=== PATIENT | female | born 1990 | race Caucasian/White ===

== ENCOUNTER 2024-06-23 15:23 | Outpatient (CLI) | payer BC, SELFPAY ==
--- OUTSIDE RECORDS SUMMARY | 2024-06-23 15:25 | XMS_ITS | Data Portability ---
Author Organization DONA - [facility] OFFICE Address [address] [place] [address] DONA GORDON [id number] Assessment No assessment recorded. Plan of Treatment Reminders Order Date Submit Date Provider Last Modified By Organization Details Last Modified Time Details Appointments None recorded. Lab TSH, serum, reflex free T4 2019 SHERI Not available 0 16:12:11 hemoglobin A1c, QN, blood 2019 SHERI Not available 0 09:29:23 prolactin, serum 2019 020 SHERI Not available 0 13:17:37 lipids, total, serum 2019 SHERI Not available 0 16:12:11 pap, LB + reflex to HR HPV if ASC-U - Nabothian cysts, friable cervix 2020 021 SHERI Not available 15:24:47 Referral None recorded. Procedures None recorded. Surgeries None recorded. Imaging US, transvagina l 2020 021 [email or web address] Not available 1 13:17:46 Medication Orders fluoxetine 20 mg capsule 2021 022 SHERI Not available 2 12:15:57 lorazepam 0.5 mg tablet 2021 022 SHERI Not available 2 12:15:05 Patient TargetsNo targets recorded. Patient Instructions Encounter Date Encounter Id Patient Instructions Last Modified By Organization Details Last Modified Time 12/03/2021 [id number] mental health counseling* [email or web address] Not available 12/04/2021 11:12:15 Reason for Referral None Reported. Results Created Date Observation Date Name Description Value Unit Range Abnormal Flag Note LastModifiedBy Organization Detail LastModifiedTime 07/22/20 20 07/22/2020 hemog lobin A1c, QN, blood A1C 5.2 Not Available [place] [address] [place], [address], 07/23/2020 09:04:53 07/22/20 20 07/22/2020 TSH, serum , refle x free T4 HDL 41 Not Available [address] [place], [address], 07/22/2020 16:12:11 07/22/20 20 07/22/2020 TSH, serum , refle x free T4 LDL 81 Not Available [address] [place], [address], 07/22/2020 16:12:11 07/22/20 20 07/22/2020 TSH, serum , refle x free T4 total cholesterol 152 Not Available Dist [facility] [address] [place], [address], 07/22/2020 16:12:11 07/22/20 20 07/22/2020 TSH, serum , refle x free T4 triglyceride s 152 Not Available [address] [place], [address], 07/22/2020 16:12:11 07/22/20 20 07/22/2020 TSH, serum , refle x free T4 TSH 2.45 Not Available [address] [place], [address], 07/22/2020 16:12:11 07/22/20 20 07/22/2020 lipid s, total , serum HDL 41 Not Available [address] [place], [address], 07/22/2020 15:54:38 07/22/20 20 07/22/2020 lipid s, total , serum LDL 81 Not Available [address] [place], [address], 07/22/2020 15:54:38 07/22/20 20 07/22/2020 lipid s, total , serum total cholesterol 152 Not Available Dist [facility] [address] [facility] [place], [address], 07/22/2020 15:54:38 07/22/20 20 07/22/2020 lipid s, total , serum triglyceride s 152 Not Available [address] [facility] [place], [address], 07/22/2020 15:54:38 07/22/20 20 07/22/2020 lipid s, total , serum TSH 2.45 Not Available [facility] [address] [facility] [place], [address], 07/22/2020 15:54:38 09/11/19 21 09/11/2020 pap, LB + refle x to HR HPV if ASC-U gynecologic cytology report (Pap) nil nil normal Not Available [facility] [address], [place], [address], 09/20/2020 15:06:53 09/11/19 21 09/11/2020 pap, LB + refle x to HR HPV if ASC-U HPV high risck negati ve negati ve Not Available Not Available 09/27/2020 18:10:27 Result Notes None recorded. Problems Name Problem SNOMED Code Status Onset Date Resolution Date Notes Provider Name and Address Organization Details Recorded Time Anxiety 27239501 Active 2020 Melinda Zamarripa NP [address] [place], [address], [facility] [employer] 10:54:05 Depressive disorder 55740038 Active 2020 Melinda Zamarripa NP [address] [place], [address], [facility] [employer] 10:54:10 Nosophobia 852756176 Active 2020 Melinda Zamarripa NP [address] [place], [address], [facility] 1 10:55:28 Obsessive-co mpulsive disorder 799087539 Active 2020 Melinda Zamarripa NP [address] [place], [address], [facility] 1 10:55:36 Problem Notes None recorded. Procedures Surgical History Date Name Laterality Status Provider Name and Address Organization Details Recorded Time 7 Date of Last Pap Smear completed Melinda Zamarripa NP [address] [place], [address], [facility] 07/17/2020 16:16:07 0 [place] [address] [place] [address], [phone], [facility] 07/17/2020 16:15:50 Imaging Results None recorded. Procedure Notes None recorded. Medical Equipment None Reported. Allergies Allergen ID Allergen Name Allergen Category Reaction Reaction Severity Criticality Documentation Date Start Date Code Code System Note Provider Name and Address Organization Details Recorded Time 283 Reglan medicatio n Not available Not available Not available 07/17/2020 9230 RxNorm Melinda Zamarripa NP [address] [place], [address], [facility] 0 16:12:38 Medications Name Sig Start Date Stop Date Status Note LastModified by Organization Details LastModified Time lorazepam 0.5 mg tablet TAKE 1 TO 2 TABLETS BY MOUTH EVERY 6 HOURS NEEDED FOR ANXIETY active Not Available Not Available No t Available ergocalcife rol (vitamin D2) 1,250 mcg (50,000 unit) capsule TAKE ONE CAPSULE BY MOUTH EVERY WEDNESDAY AND WEDNESDAY. active Not Available Not Available No t Available fluoxetine 20 mg capsule TAKE 1 CAPSULE EVERY DAY BY ORAL ROUTE. active Not Available Not Available No t Available neomycin-po lymyxin-hyd rocort 3.5 mg-10,000 unit/mL-1 % ear drops,susp INSTILL 4 DROPS INTO AFFECTED EAR(S) INTO RIGHT EAR 4 TIMES DAILY FOR 7 DAYS 09/11 completed Not Available Not Available Not Available Vitals Date Recorded Body height Body mass index (BMI) Body weight Provider Name and Address Organization Details Last Updated DateTime 07/17/2020 154.94 cm 39.7 kg/m2 32846.4 g Melinda Zamarripa NP [address] [place], [address] [employer] [facility] 07/17/2020 16:11:36 Date Recorded Body height Provider Name an d Address Organization Details Last Updated DateTime 07/31/2020 154.94 cm Melinda Zamarripa NP [address] [place], [address] [employer] 07/31/2020 11:38:15 Date Recorded Body height Body mass index (BMI) Body weight Respiratory rate Systolic blood pressure Diastolic blood pressure Provider Name and Address Organization Details Last Updated DateTime 1 158.75 cm 36.5 kg/m2 46877.2 5 g 83 /min 130 mm[Hg] 84 mm[Hg] Melinda Zamarripa NP [address] [place], [address], [facility] [employer] 1 10:54:34 Date Recorded Body weight Body mass index (BMI) Body height Heart rate Systolic blood pressure Diastolic blood pressure Provider Name and Address Organization Details Last Updated DateTime 2 51996.7 7 g 33.7 kg/m2 158.75 cm 77 /min 111 mm[Hg] 75 mm[Hg] Melinda Zamarripa NP [address] [place], [address] [place] [address] [employer] 2 10:58:07 Social History Question Answer Notes LastModified by Organizat ion Details LastModified Time Tobacco Smoking Status Never Smoker Melinda Zamarripa NP [address] [place], [address], [facility] [employer] 07/17/2020 16:13:18 What Is Your Level Of Alcohol Consumption? None Information not available 07/17/2020 What Is Your Level Of Caffeine Consumption? Moderate Daily Pop Information not available 07/17/2020 Are You Currently Employed? No Information not available 07/17/2020 What Type Of Diet Are You Following? REGULAR Information not available 07/17/2020 Which Illicit Or Recreational Drugs Have You Used? None Information not available 07/17/2020 What Is Your Occupation? Doesn't Work Information not available 07/17/2020 Hard Of Hearing Or Deaf In One Or Both Ears? No Information not available 07/17/2020 Legally Blind In One Or Both Eyes? No Information not available 07/17/2020 Live Alone Or With Others? With Others Lives With Her Mom Information not available 07/17/2020 How Many Children Do You Have? 2 10, 3 Information not available 07/17/2020 Are You Sexually Active? Yes Information not available 07/17/2020 General Stress Level Medium Information not available 07/17/2020 Sex: Unknown Functional Status Question Answer Note LastModified by Organization D etails LastModified Time Are you able to care for yourself? Yes Information n ot available 07/17/2020 What is your exercise level? None Information not available 07/17/2020 Mental Status None recorded. Family History Relationship Description Onset Age of this Age Resolved Age Notes LastModified by Organization Details LastModified Time Father No current problems or disability Not available 07/17 16:13:10 Mother No current problems or disability Not available 07/17 16:13:10 Medical History No medical history recorded. Gynecological History Statement/Question Response Date of LMP 03/07/2020 Sexually Active? Y STIs/STDs N Menses Monthly N Date of Last Pap Smear 06/23/2017 Current Control Method None LMP Approximate Obstetrics History GPAL:G 2 P 0 0 0 2 Type Value Living 2 Total 2 Past Encounters Encounter ID Performer Location Encounter Start Date Encounter Closed Date Diagnosis/Indication Diagnosis SNOMED-CT Code Diagnosis ICD10 Code [id number] Melinda Zamarripa NP [facility] [address] [place] [phone] 07/17/2020 15:42:42 07/17/2020 17:44:59 Irregular periods 23482930 N92.6 [id number] Melinda Zamarripa NP [facility] [address] [facility] [place] [address] 07/31/2020 11:20:07 07/31/2020 12:07:28 Irregular periods 07025806 N92.6 Screening for malignant neoplasm of cervix 927031139 Z12.4 [id number] Melinda Zamarripa NP [facility] [address] [place] [address] DONA RAMOS [phone] 09/11/2020 09:52:46 09/11/2020 11:12:11 Irregular periods 87247409 N92.6 Screening for malignant neoplasm of cervix 053688089 Z12.4 [id number] [facility] [address] [place] [address] [place] [address] 12/03/2021 10:42:19 12/03/2021 12:53:07 Anxiety 61408166 F41.9 Health Concerns Section Related Observation LastModified by Organization Detai ls LastModified Time None Recorded Concern Status LastModified by Organization Details LastModified Time None Recorded Advance Directives Directive None Recorded Payers Encounter Date Sequence Insurance Name Policy Number Policy Olguin Covered Member ID Olguin Member ID Guarantor Name 07/17/2020 SLIDING FEE SCHEDULE - DISCOUNT Stefania Pearl 07/31/2020 SLIDING FEE SCHEDULE - DISCOUNT Stefania Pearl 09/11/2020 SLIDING FEE SCHEDULE - DISCOUNT Stefania Pearl 12/03/2021 SLIDING FEE SCHEDULE - DISCOUNT Stefania Dae Notes Date Note Type Note Provider Name and Address Organization Details Recorded Time 07/17/2020 text/html HPI Notes: 30 y. o F evaluated via phone for the following concern: No period x 4 months UPTs have been negative Started having cramping/pressure in her abdomen intermittently around the time of her scheduled period, but no bleeding Clitoris has been hurting Last sexually active 4 months ago Partners are men No vaginal symptoms Weight gain ~50 lbs (used to be 160) in the last 1-2 years Melinda Zamarripa NP [address] [facility] [place], [address], [facility] 07/17/2020 16:36:25 07/31/2020 text/html HPI Notes: 30 y. o F evaluated via doxy in follow up after evaluation 2 weeks ago for amenorrhea Due to BMI and patient-reported weight gain, PCOS was thought to be the most likely cause of amenorrhea Labs performed: TSH, A1c, lipids were unremarkable. PRL slightly elevated but not concerning for prolactinoma Just got her period starting 1 week ago - felt like a normal period to her, but stopped for a day in the middle Last sexually active 4 months ago, still in a relationship with the father of her child No vaginal symptoms or concern for STIs Weight gain ~50 lbs (used to be 160) in the last 1-2 years Reports that it's really hard for her to stop eating Eats whenever - eats leftovers, bread. Has cravings. I eat more than I should Exercise - right now she's in quarantine - she's been walking a lot in her room, knows of exercises Feeling well physically Melinda Zamarripa, ROQUE [address] [place], [address], [facility] 07/31/2020 11:59:42 09/11/2020 text/html HPI Notes: 30 y. o. established patient In-person visit PMH: irregular periods, obesity, anxiety, depression, OCD, nosophobia In-person visit for follow up for irregular periods and pap smear 1. Irregular periods: long history of irregular periods. Reports long stretches of monthly periods followed by periods of oligomenorrhea and amenorrhea. Recent TSH, A1c, lipids, prolactin unconcerning (though prolactin was very slightly elevated, not high enough to be concerning for prolactinoma). Had a period in july as well as august. LMP 08/28/20. These periods were irregular in that she bled on days 1-3, stopped for days 4-5, and restarted days 6-7. Flow is moderate, whereas it used to be heavy. Irregularities thought to be related to PCOS by provider given patient's weight and physical findings of acanthosis nigricans in axillae and mildly at base of neck, as well as mild hirsutism. Previously she had been advised to attempt weight loss by dietary changes and increased exercise. Patient reports that she has not made any changes to her diet or exercise. Patient not using contraception - not interested in any type of control due to history of side effects with those she has tried. Currently sexually active with one male partner. Associated ROS: Patient reports history of pelvic pain occasionally, lasting for a full day. Has had a pelvic U/S in the past that was normal (records show 2018). Patient also concerned about inability to orgasm with penetrative sex with partner. Has never been able to, but partner told her this was abnormal. Denies pelvic pain currently, vaginal discharge, itching, odor, irritation, breast tenderness, nausea, vomiting, fatigue, headache, further weight changes. 2. Pap smear - last pap 09/15/17 NILM. No other records available. Patient denies history of abnormal pap smear. Melinda Zamarripa, FINANCIAL AID ADMINISTRATOR [address] [place], [address], [facility] [employer] [facility] 09/11/2020 12:12:33 12/03/2021 text/html HPI Notes: 31 y. o. established patient with history of anxiety, nosophobia, OCD, and depression presents for follow up after urgent care appointment 11/05/21 for left neck and pectoral pain with radiation to left wrist Pain was felt to be musculoskeletal in nature - likely a pinched nerve or muscle that has radiated to her right hand. Differential diagnosis may consider carpel tunnel or tendonitis according to urgent care provider. It was recommended that she take Ibuprofen 600mg TID x 1 week and schedule a follow up with PCP. Presents today with concerns about increasing anxiety and panic attacks associated with restlessness, SOB, desperation. She reports that she perseverates often on concerns about her own medical conditions and the health of her children. She is not able to sleep due to worry. She stopped working because she was afraid that something would happen to her children while she is at work. When her daughter was 1.5 years old she got a virus and the patient had to take her to the ER. Her daughter had tachycardia at that time, but has subsequently had many normal visits with the dry cans back tender. Patient reports that she worries constantly about her daughter's heart. Previously took medications that were helpful, but cannot remember the name. Open to therapy but did not especially find it helpful. Denies manic symptoms or hallucinations. Patient lives with her mother and her children (12 and 4). She feels safe at home. She is sexually active with one male partner and uses condoms. She has irregular periods. Last period 2 months ago, multiple negative UPTs since. Denies smoking, alcohol abuse, or drug use. Melinda Zamarripa, FINANCIAL AID ADMINISTRATOR [address] [place], [address], [facility] 12/03/2021 14:59:27 OBGyn Episode No OBEpisode recorded.
--- OUTSIDE RECORDS SUMMARY | 2024-06-23 15:25 | XMS_ITS | Clinical Summary ---
Author Organization [facility] Address [place], [place] [address] Care Team Providers Care Steel Erector Name Role Phone Amena Jamison Primary Care Provider Allergies Active Allergy Reactions Criticality Noted Date Comments Fluoxetine *Unknown 12/16/2021 Serotonin syndrome (vs extreme anxiety reaction) Metoclopramide Hcl Dystonia High 12/23/2016 dystonic reaction. Medications Medication Sig Dispensed Refills Start Date End Date Status propranoloL (INDERAL) 10 mg tabletIndicatio ns:Severe anxiety with panic Take 0.5 Tablets (5 mg) by mouth two times daily. May take 1/2 tablet extra if needed once daily for breakthrough symptoms. 90 Tablet 3 06/04/2023 Active famotidine (PEPCID) 20 mg tabletIndicatio ns:Upper abdominal pain Take 1 Tablet (20 mg) by mouth two times daily. 30 Tablet 06/06/2024 Active vit no.124/iron/fol ic ( VITAMIN ORAL) Take 1 Tablet by mouth once daily. Active no115/iron/foli c acid ( 19 ORAL) Take by mouth. 4 Discontinued(P harmacist change per medication history (E-cancel not sent)) aluminum-magnes ium hydroxide-simet hicone (MAALOX PLUS) 200-200-20 mg/5 mL suspensionIndic ations:Upper abdominal pain Take 15 mL by mouth 4 times daily if needed for GI Upset. Shake Well. 355 mL 06/06/2024 4 Discontinued(P harmacist change per medication history (E-cancel not sent)) Active Problems Problem Noted Date Diagnosed Date [facility] [place], Supervision of high-risk 06/20/20 24 Overview (06/21/2024): Stefania Pearl : 1990 REFERRING PROVIDER: Hiral Ruggiero MD, [place], Primary provider approves scheduling of recommended ultrasounds/testing: Yes [facility] [place] ULTRASOUND/TESTING PATIENT Support person name: Albert ULTRASOUND TYPE: level II REASON FOR VISIT: Large anterior placental beckford in an anterior placenta, pt with history of prior C/S NEXT VISIT ALERTS: Final BIRDIE by Early Ultrasound LMP Date: Patient's last menstrual period was 01/21/2024 (exact date). BIRDIE: 10/27/24 Early US: Date: 03/17/24 GA: 7w2d BIRDIE: 11/01/24 PrePregnancy Weight: 196lb Height: 5'2 BMI: 35 PLANS & FUTURE APPOINTMENTS: ULTRASOUND/GROWTH PLAN: - Through: - Growth: Next TESTING PLAN: - Testing: Through DELIVERY PLAN: - Scheduled delivery: - Preferred delivery location: PRIMARY DIAGNOSIS: 34 y.o. Estimated Date of Delivery: 11/01/24 Large anterior placental beckford in an anterior placenta MATERNAL BMI > 35 Cholecystitis in , recommendation for cholecystectomy, patient has deferred at this time Anxiety/PTSD/OCD Hx palpitations 2017 Term 2009 Term P LTCS-arrest of dilitation, [place], [place] PREVIOUS ULTRASOUNDS: 06/27/24 21w6d 06/19/24 20w5d EFW 417 grams, percentile: 79- placenta lies anteriorly without evidence of placenta previa. Anechoic collection of fluid within the placenta measuring 8.4 x 1.6 x 5.3 cm. ECHO: SPECIALISTS/CONSULTS: Include: Specialty MD Clinic Name Phone# [place] and ADDED TO PATIENT CARE TEAM Bernardino Ocasio MD, Surgery - General, [place] 06/12/24 Sharita Walls MD, Cardiology, [place] 06/04/23 Maria E Venegas, [facility], psych, [place] 03/10/22 GENETICS: NIPS: low risk CARE COORDINATION: PERTINENT LABS: Labs reviewed? Yes Normal? Yes Blood type: O Rh Positive Antibody screen: Negative 04/05/24 Baseline Pre E WNL PERTINENT MEDS: Propranolol (anxiety) PROCEDURES: 06/10/24 MR Abd The nondilated appendix is identified arising from the cecum in the right lower quadrant and measures up to 4 mm at the tip (03/15). There is mild T2 signal adjacent to the appendix, which could represent inflammation, but incomplete fat suppression is also possible (06/15). Overall, no definite evidence of acute appendicitis, but early appendicitis could not be entirely excluded either. 06/09/24 US Abd 1. Cholelithiasis with borderline thickened wall and reported positive sonographic Cary`s sign, suspicious for cholecystitis in the correct clinical setting. 2. Hepatic steatosis. IF FGR <10% or EFW <2000 grams: Add FGRPCOM PLAN OF CARE: Original and updated POC JAYY (generalized anxiety disorder) 06/10/2024 Right sided abdominal pain 06/10/2024 Second trimester 06/10/2024 Pap smear for cervical cancer screening 03/29/20 24 Overview (03/29/2024): 02/2024 NIL/HPV negative. Plan: Pap/HPV due 02/2029. 03/07/2024 Overview (03/17/2024): Primary OB patient of Dr. Ruggiero Preferred name: Stefania Language/cultural preferences: Surinamese OB HISTORY / PERTINENT MEDICAL HISTORY: Estimated Date of Delivery: 11/01/24- Not c/w LMP Dating by U/S @ 7w2d OB History Para Term AB Living 3 2 1 0 0 2 SAB IAB Ectopic Multiple Live Births # Outcome Date GA Lbr Rodrigue/2nd Weight Sex Type Anes PTL Lv 3 Current 2 Term 08/03/17 39w6d 3.18 kg (7 lb) F Vag 1 Para 09/28/09 40w4d F CS-LTranv Prior hx Preeclampsia NO HTN NO GDM NO Dystocia NO C/S YES in 2009, had in 2016 If hx C/S needs TOLAC consult Issues this : Social History : FOB/Spouse: Albert Children: 2 at home, 7y and 16y 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 Pre-eclampsia risk on aspirin? {yes/no/NA:93666} LABS: GBS: {gbs:17144} 28wk labs: {28wOBlab:88389} OB labs: ABORH Date Value Ref Range Status 03/07/2024 O Rh Positive Final ANTIBODY SCREEN Date Value Ref Range Status 03/07/2024 Negative Negative Final TREPONEMA PALLIDUM Date Value Ref Range Status 03/07/2024 Non-Reactive Non-Reactive Final RUBELLA IGG ANTIBODY Date Value Ref Range Status 03/07/2024 4.23 >=1.00 Index Final INTERPRETATION Date Value Ref Range Status 03/07/2024 Positive Final Comment: Presence of detectable IgG antibodies. A positive result generally indicates exposure to the virus or previous vaccination, but is not an indication of active infection or stage of disease. HBSAG Date Value Ref Range Status 03/07/2024 Nonreactive Nonreactive Final HEPATITIS C ANTIBODY Date Value Ref Range Status 03/07/2024 Non-Reactive Non-Reactive Final Comment: Please note, per www.CDC.gov: If a patient is known to be at high risk of HCV infection, or is symptomatic, and the physician's suspicion of HCV infection is high, HCV RNA testing is often employed and is of diagnostic value, even after an initial negative anti-HCV test result. HIV-1/HIV-2 SCREEN Date Value Ref Range Status 03/07/2024 Non-Reactive Non-Reactive Final Comment: HIV-1 p24 and HIV-1/HIV-2 Ab Not Detected. HEMOGLOBIN Date Value Ref Range Status 03/09/2024 12.4 12.0 - 16.0 g/dL Final PLATELET COUNT Date Value Ref Range Status 03/07/2024 350 140 - 440 thou/cu mm Final CHLAMYDIA PROBE Date Value Ref Range Status 03/07/2024 Negative Final N GONORRHOEAE PROBE Date Value Ref Range Status 03/07/2024 Negative Final PLAN: Waterbirth: {YES/NO:} plan: {YES/NO:} Support people at delivery: Circumcision: {yes/no/NA:17357} Feeding plan: {BREAST/BOTTLE:69} Contraception: Obsessive-compulsive disorder with good or fair insight 02/16/2022 Posttraumatic stress disorder with delayed expre ssion 02/16/2022 Serotonin syndrome 12/15/2021 Vulvar lesion 04/01/2017 Overview (04/01/2017): Probably vulvar palpillae at introitus, less likely condyloma Estimated Date of Delivery Comme nts Yes 11/01/2024 Based on Ultraso und Resolved Problems Problem Noted Date Diagnosed Date Resolved Date Encounter for supervision of other normal , first trimester 12/02/2016 03/17/2024 Obsessive-compulsive disorders 05/26/2013 02/16/2022 Phobia 03/07/2013 02/16/2022 Overview (03/07/2013): nosophobia, fear of getting ill or having an illness Depression with anxiety 03/03/201301/22 Supervision of normal first 05/22/2009 11/12/2009 Encounters Date Type Department Care Team Description 06/23/2024 Nurse Triage [facility] [address] [place] [address] Hiral Ruggiero MD Abdominal Pain 06/20/2024 Transcribe Orders [facility] [address] [place] [address] Hiral Ruggiero MD 06/20/2024 Orders Only [facility] [address] [facility] [place] [address] Hiral Ruggiero MD <No scans attached> 06/19/2024 1:50 PM CDT OB Encounter [facility] [address] [facility] [facility] [place] [address] Hiral Ruggiero MD Care (20 weeks 5 days) 06/19/2024 1:00 PM CDT Ancillary Procedure [facility] [address] [facility] [address] Arrived 06/19/2024 Travel 06/12/2024 10:00 AM CDT Office Visit [facility] [address] [place] [address] Bernardino Ocasio MD Consult (Gallbladder) 06/12/2024 Telephone [facility] [address] [facility] [address] Hiral Ruggiero MD Medication Management ( vitamins) 06/12/2024 Travel 06/11/2024 Telephone [facility] [address] [place] [address] Cathy Alaniz PharmD Abnormal Lab Results 06/10/2024 12:55 AM CDT - 06/11/2024 10:33 AM CDT Emergency [facility] [address] [place] [address] Efraín Odom PA Dodd, Kendra Danielle, MD [facility], [facility] Elizabeth DO Barnard, Kayla Julia, PA Royston, Princess Dalal MD RLQ abdominal pain (Primary Dx) Discharge Disposition: Home Self Care 06/10/2024 Travel 06/09/2024 3:09 PM CDT - 06/09/2024 11:52 PM CDT Emergency [facility] [address] [place] [address] Jose D Mccabe MD Bailey, Joshua Anthony, MD Abdominal pain during in second trimester (Primary Dx); Acute bilateral low back pain without sciatica; Vaginal discharge during in second trimester; Spotting affecting in second trimester; Leukocytosis, unspecified type Discharge Disposition: Short Term/PPS Hosp 06/09/2024 2:50 PM CDT Office Visit [facility] [address] [place] [address] Problem (Feeling abdominal discomfort- describes like period cramps. Lower back discomfort. Starting 2-3 days ago. Today noted green vaginal discharge with some vaginal spotting today x 1.) 06/09/2024 Travel 06/06/2024 10:09 AM CDT - 06/06/2024 12:52 PM CDT Emergency [facility] [address] [place] [address] Paul Nieves MD Upper abdominal pain (Primary Dx); , unspecified gestational age; Calculus of gallbladder without cholecystitis without obstruction Discharge Disposition: Home Self Care 06/06/2024 Travel 06/06/2024 Nurse Triage [facility] [address] [place] [address] Hiral Ruggiero MD Abdominal Pain 05/27/2024 Orders Only [facility] [address] [place] [address] Hiral Ruggiero MD 1 scan: (1-Ord) GENE NICK, DNA SCREEN SEND OUT, 05/16/2024 05/16/2024 1:25 PM CDT OB Encounter [facility] [address] [place] [address] Hiral Ruggiero MD Care (15w 6 days); Medication Management (questions on what pre- to take. ) 05/16/2024 Travel 04/07/2024 Telephone [facility] [address] [place] [address] Stefania Galdamez, PharmD Results (Vaginal Swab - Positive for Mar) 04/05/2024 9:37 PM CDT - 04/05/2024 11:59 PM CDT Emergency [facility] [address] [place] [address] Alicia Kerr DO Abdominal pain during in first trimester (Primary Dx) Discharge Disposition: Home Self Care 04/05/2024 Travel from Last 3 Months Immunizations Name Administration Dates Next Due Hepatitis B, Unspecified 10/01/2006,06/22/2006,0 05/05/2006 Human Papilloma Virus Vaccine 01/25/2015 Influenza A (H1N1), Inactivated 06/26/2009 MMR 05/05/2006 Tdap 06/18/2017,05/05/2006 Family History Medical History Relation Name Comments Good Health Brother Good Health Father Diabetes Maternal Grandfather type 2 Diabetes Maternal Grandmother Type 2 Good Health Mother Cancer-breast Paternal Grandfather Good Health Sister Relation Name Status Comments Brother Alive Father Alive Maternal Grandfather Maternal Grandmother Mother Alive Paternal Grandfather Sister Alive Social History Tobacco Use Types Packs/Day Years Used Date Smoking Tobacco: Never Smokeless Tobacco: Never Tobacco Cessation:Counseling Given: Yes Alcohol Use Standard Drinks/Week Comments No 0 (1 standard drink = 0.6 oz pur e alcohol) PHQ-2 Answer Date Recorded PHQ-2 TOTAL SCORE 0 03/07/2024 Social Connections Answer Date Recorded Do you often feel lonely or isolated from those around you? 0 02/28/2024 Financial Resource Strain Answer Date R ecorded Difficulty of Paying Living Expenses 3 02/28/2024 Difficulty of Paying Living Expenses Not on file 02/28/2024 Food Insecurity Answer Date Recorded Do you worry your food will run out before you are able to buy more? 1 02/28/2024 Transportation Needs Answer Date Record ed Does lack of transportation keep you from medica l appointments? 1 02/28/2024 Does lack of transportation keep you from work, meetings or getting things that you need? 1 02/28/2024 Housing Stability Answer Date Recorded What is your housing situation today? 1 02/28/2024 Estimated Date of Delivery Comme nts Yes 11/01/2024 Based on Ultraso und Sex and Gender Information Value Date Recorded Sex Assigned at Not on file Gender Identity Not on file Sexual Orientation Not on file Obstetrics History Para Term AB IAB SAB Ectopic Multiple Livin g Live Births 3 2 2 0 0 2 2 Date Outcome GA Total Labor Labor/2nd/3rd Weight Sex Type Anes PTL Jaelyn A1 A5 Name Clin 09/28 Term 40w 4d F CS-LTra nv Living Complications:Oligohydramnio s,Chorioamnionitis 08/03 Term 39w 6d 3.18 kg (7 lb) F Induced Living 9 9 Current Summary Episode Dates Number of Fetuses Estimated Date of Delivery 03/07/2024 - Present (06/23/2024) 11/01/2024 (set by Cat Fay RN on 03/17/2024 based on Ultrasound on 03/17/2024) Dating Summary Based On BIRDIE GA Diff Last Menstrual Period on 01/21/2024 (Exact Date) 10/27/2024 +5d Comment:period is currently late Ultrasound on 03/17/2024 11/01/2024 Working GA:7w2d Alternate BIRDIE Entry 10/27/2024 +5d Vitals Pregravid Weight Height TWG (As of 06/23/2024) Pregrav id BMI 1.575 m (5' 2) Date GA Fund Present FHR Mvmt BP Weight Edema Alb Glu Ket Dil/ Eff/Sta 4 6w1d Inpatient data not displayed here. See encounter summary. 4 10w0d Inpatient data not displayed here. See encounter summary. 4 18w6d Inpatient data not displayed here. See encounter summary. 4 19w2d Inpatient data not displayed here. See encounter summary. 4 19w4d Inpatient data not displayed here. See encounter summary. Notes Progress Notes - OB Encounte r - 06/19/2024 - GA:20w5d 06/19/2024 - 20w5d - Hiral Ruggiero MD S: Patient here today for routine visit. Doing well. History 1) Anxiety. Previously on atenolol, found that this was helpful. She was transitioned to propranolol early in . 2) H/o with subsequent 3) Cholecystitis in , recommendation for cholecystectomy, patient has deferred at this time, considering at viable GA. Patient recently hospitalized on 06/10 with abdominal pain with US evidence of acute cholecystitis. She had a subsequent visit with Dr Ocasio in general surgery to discuss risks/benefits of cholecystectomy in . Patient remains very hesitant about intervention. She worries about risks it poses to fetus and if desires to get done she wants to wait until viability (~24 weeks). She states her abdominal pain that brought her into the hospital has subsided with pepcid and does not feel she has symptomatic cholecystitis at this time. She also endorses right lower abdominal wall pain with ambulation. Improves with rest. This is different from pain she had in upper quadrants. No nausea. Good movement. No vaginal bleeding/discharge, loss of fluid, contractions, dysuria or other urinary symptoms. No headache, vision changes, facial or extremity edema. She states she gets frequent yeast infection, yellowish greenish discharge. She has been using cream. O: See flowsheet. A/P: 34 y.o. at 20w5d, doing well. 1. Encounter for supervision of low-risk in second trimester 2. Severe anxiety with panic 3. Cholecystolithiasis affecting in second trimester - Long discussion today regarding recent diagnosis of cholecystitis. She has changed diet and states she no longer has RUQ symptoms. Cary's sign negative today in clinic. She is very uncertain and anxious about surgery as well as delaying intervention. She continues to consider options and will reconsider options once at viability or if symptoms return. She will reach out if she has made a decision. She is aware that once at viability she would likely need to be in a place with a NICU. - States anxiety is stable. - Anatomy US normal, she does have a large placental beckford. - Reviewed labor precautions. - Return in 4wks for OB FU. Hiral Ruggiero MD .................... 06/19/2024 1:47 PM Progress Notes - Hospital En counter - 06/11/2024 - GA:19w4d 06/11/2024 - w - Rosendo Mcgarry MD GENERAL SURGERY PROGRESS NOTE SUBJECTIVE: Resolved RLQ pain. Normalized WBC. Tolerating clear liquids. Complains of occasional RUQ pain. OBJECTIVE: BP 94/50 (Cuff Size: Adult Regular) Pulse 86 Temp 97.9 ??F (36.6 ??C) Resp 18 Ht 1.575 m (5' 2) Wt 87.6 kg (193 lb 1.6 oz) LMP 01/21/2024 (Exact Date) Comment: period is currently late SpO2 96% BMI 35.32 kg/m?? Temp (24hrs), Av.9 ??F (36.6 ??C), Min:97.8 ??F (36.6 ??C), Max:98.1 ??F (36.7 ??C) Patient Vitals for the past 72 hrs: Weight 06/10/24 0051 87.6 kg (193 lb 1.6 oz) No intake or output data in the 24 hours ending 06/11/24 1011 PHYSICAL EXAM: RESPIRATORY: Normal CARDIOVASCULAR: Normal ABDOMEN: soft, non distended. No rebound tendrness or guarding. Recent Labs 06/09/24 1538 06/06/24 1031 SODIUM 137 137 POTASSIUM 3.8 3.7 CHLORIDE 103 102 [id number] 24 22 BUN 6 6 CREATININE 0.54 0.46 L CALCIUM 9.2 8.9 Recent Labs 06/11/24 0448 06/10/24 0420 06/09/24 1538 06/06/24 1031 ALKPHOSPH -- -- 75 57 WBC 9.9 11.9 H 12.0 H 9.7 HGB 11.1 L 11.0 L 12.4 11.8 L PLT 296 299 314 296 ASSESSMENT & PLAN: 34 y/o female w/ anxiety, OCD, depressive disorder, and PTSD and currently 19 wks presented with recurrent Rt groin pain: Due to atypical history/physical and resolved leukocytosis and pain without surgery, this is less likely an appendicitis episode. I recommend advancing to regular diet and discharging home today. No further antibiotics indicated. Patient has some complaint of RUQ pain with known gallstones. We had a discussion about risks and benefits of cholecystectomy for biliary colic during . If she is interested in pursuing in surgery, she may follow up with general surgery team as an outpatient. General surgery team will sign off from this patient's care. Vlad Mcgarry MD .................... 06/11/2024 10:11 AM 06/11/2024 - 19w4d - Xochitl Vidales MD OB PROGRESS NOTE SUBJECTIVE: Patient doing well. Pain much improved. No vaginal bleeding or leaking fluid. Maybe feeling flutters but no gross movements yet. Very happy that her WBC is improved and that she does not need surgery. Happy to go home today and has a general surgery appointment for her gallstones tomorrow in [facility] and will ask about the appendectomy if needed prior 3rd trimester. Discussed surgery in and timing. All questions and concerns addressed. heart today is reassuring 130-140s via doptones. OBJECTIVE: BP 94/50 (Cuff Size: Adult Regular) Pulse 86 Temp 97.9 ??F (36.6 ??C) Resp 18 Ht 1.575 m (5' 2) Wt 87.6 kg (193 lb 1.6 oz) LMP 01/21/2024 (Exact Date) Comment: period is currently late SpO2 96% BMI 35.32 kg/m?? Temp (24hrs), Av.9 ??F (36.6 ??C), Min:97.8 ??F (36.6 ??C), Max:98.1 ??F (36.7 ??C) Patient Vitals for the past 72 hrs: Weight 06/10/24 0051 87.6 kg (193 lb 1.6 oz) No intake or output data in the 24 hours ending 06/11/24 0946 PHYSICAL EXAM: Exam: Gen: no acute distress Lung: no breathing difficulties Heart: normal heart rate Abdomen: soft, none-distended, none tender to palpation, gravid slightly below umbilicus. HEART RATE 138 : deferred Extremities: trace edema, no pain to palpation Neuro: grossly intact Psychiatry: appropriate, no anxiety or depression Recent Labs 06/09/24 1538 06/06/24 1031 SODIUM 137 137 POTASSIUM 3.8 3.7 CHLORIDE 103 102 [id number] 24 22 BUN 6 6 CREATININE 0.54 0.46 L CALCIUM 9.2 8.9 Recent Labs 06/11/24 0448 06/10/24 0420 06/09/24 1538 06/06/24 1031 ALKPHOSPH -- -- 75 57 WBC 9.9 11.9 H 12.0 H 9.7 HGB 11.1 L 11.0 L 12.4 11.8 L PLT 296 299 314 296 Principal Problem: Right sided abdominal pain Active Problems: JAYY (generalized anxiety disorder) Second trimester ASSESSMENT & PLAN: Patient is 34 years old now at 19w4d with previable and admitted for acute right sided abdominal pain, work up noted inflammation around appendix. She was admitted for observation and pain control. Had mild leukocytosis on admission but this morning resolved. Discussed possible appendicitis but now given improved White blood cells and pain, no further intervention including surgery. Ok to go home from OB standpoint and heart rate reassuring this morning. Resume routine OB care at [facility]. Continue to follow up with General surgery tomorrow for the gallstones and ?appendicitis. All questions and concerns addressed. Appreciate management per primary team and general surgery. Xochitl Vidales MD .................... 06/11/2024 9:45 AM Total time 20 minutes >50% in counseling and coordination of care. Will continue to follow as long as she is inpatient but ok for discharge to home this morning. 06/11/2024 - John Downey RN Discharge Note Data: Patient has been discharged home with a family/friend. Family/friend's name at 1030AM via ambulatory accompanied by Family. Action: Written discharge/follow-up instructions were provided to patient and Spouse. Prescriptions NA. Belongings and medications from home sent with patient and Spouse. Home equipment: none Patient is being discharged with the following new lines and drains: None. Is patient being discharged with a wound, dressing, or incision site? No. DISCHARGE CONTACT INFORMATION Phone number to reach the patient within the next 72 hours after discharge?: (not recorded) May staff leave a detailed message at this number? : (not recorded) Response: Patient and Spouse verbalized understanding of discharge instructions, reason for discharge, and necessary follow-up appointments. 06/11/2024 - Yodit Blair RN Nursing Shift Care Plan Summary Note Pain/Comfort: Denies pain ASSESSMENT FINDINGS/INTERVENTIONS/EVALUATION for Active Problems during this hospitalization: Active Problems: Right sided abdominal pain Assessment/Interventions: A&O x4, VSS on RA. Pt denies nausea, vomiting, and dizziness. Tolerating clear liquids. Voiding WNL, no BM. Pt is 19 weeks . BP 96/54 (Cuff Size: Adult Regular) Pulse 77 Temp 98.1 ??F (36.7 ??C) Resp 16 Ht 1.575 m (5' 2) Wt 87.6 kg (193 lb 1.6 oz) LMP 01/21/2024 (Exact Date) Comment: period is currently late SpO2 94% BMI 35.32 kg/m?? Progress: stable Additional Nursing Focus Areas (include assessment, interventions and evaluation details as appropriate): Activity (Last 8 Hours) Eve-CytoVale Row Name 06/11/24 0400 JH-AMP Mobility Highest Level of Mobility Performed Walked 10 steps or more Level of Assistance Independent Equipment None Independent and Nutrition: Clear liquids Goals/Barriers: Patient Goals for Next Shift: pain management, promote comfort, possible lap appy today Discharge Plan/Barriers to Discharge: pending Yodit Blair RN .................... 06/11/2024 6:31 AM 06/10/2024 - [place] - John Downey RN Nursing Transfer In Note Data: Stefania Pearl arrived to room E3161 via wheelchair from ER at 1600. Report received from ONE Changess RN. Received belongings along with the patient. Action: Patient oriented to room, call system, and unit routine. Plan of care reviewed with patient/family. Response: Patient tolerated transfer. 06/10/2024 - wTressa White RN Patient tolerating clear liquid diet lunch w/o increase in pain, nausea. Has not used any PRNs thus far. 06/10/2024 - 19w3d Yolande Mena PA Hospitalist Progress Note [facility] Date of service: 06/10/2024 Hospital Day: 1 Hospital Summary Stefania eParl is a(n) 34 y.o. with a history of JAYY, prior who was admitted on 06/10/2024 with right lower abdominal pain. Patient presented with right lower abdominal pain since Wednesday. Denied fever, nausea, vomiting, diarrhea, constipation, urinary symptoms. She reported having green/yellow vaginal discharge on Saturday 06/09. No recent hospitalizations. Last BM yesterday. In emergency department, vitals stable. Labs with White blood cells 12.0. CRP 2.1. MR abdomen without contrast with possible early appendicitis. Patient was admitted for observation. General surgery consulted. Plan is to observe overnight with a repeat WBC in the AM. If WBC is elevated or if post prandial pain then plan is for lap appendectomy tomorrow. _ Subjective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 before your referring provider.If you have questions, please contact your health care provider. INDICATION: Evaluate anatomy. COMPARISON: 06/09/2024 TECHNIQUE: Real time brown scale imaging of the fetus was performed as well as colorDoppler analysis of the umbilical vessels. FINDINGS: Sonographic imaging demonstrates a single living intrauterine gestation.Fetus demonstrates a regular cardiac rate of 153 beats per minute. Fetushas a vertex position. The placenta lies anteriorly without evidence ofplacenta previa. Anechoic collection of fluid within the placentameasuring 8.4 x 1.6 x 5.3 cm. Amniotic fluid volume appears normal.Single deepest vertical pocket: 5.3 cm. The cervix is closed and measures4.8 cm in length. The composite ultrasound gestational age is calculatedat 21 weeks 3 days with an estimated sonographic due date of 10/27/2024.The estimated weight is 417 grams which lies at the 79th %. The following biometric measurements were obtained: Biparietal diameter: 5.1 cm/21 weeks 4 days 79th% Head circumference: 18.8 cm/21 weeks 1 day 58th% Abdominal circumference: 16.7 cm/21 weeks 5 days 75th% Femur length: 3.5 cm/21 weeks 0 days 50th% The HC/AC ratio measures: 1.12 range (1.09-1.26) On anatomic survey, there is a normal appearance of the cerebralventricles, cavum septi pellucidi, cisterna magna and cerebellum. Thefetal nose, lips, and facial profile appear normal. The cervical,thoracic and lumbar spine are well visualized and appear normal. There catalino normal four-chamber heart view and the left and right ventricularoutflow tracts appear normal. The diaphragm and stomach appearnormal. The kidneys and bladder also appear normal. There is a normalthree-vessel cord and cord insertion site. The four extremitiesappear normal. IMPRESSION: Concordance of clinical and sonographic dating. No intrinsic abnormalities noted on anatomic survey. Large placental beckford measuring 8.4 x 1.6 x 5.3 cm. Dictated by Efraín Griggs MD @ 06/19/2024 3:34:01 PM (Electronically Signed) Hiral Ruggiero MD * (ABNORMAL) CBC no diff AM (06/11/2024 4:48 AM CDT) Only the most recent of4 resultswithin the time period is included. WHITE BLOOD COUNT 9.9 4.5 - 11.0 thou/cu mm 06/11/2024 5:30 AM CDT [facility] RED BLOOD COUNT 3.86(L) 4.00 - 5.20 mil/cu mm 06/11/2024 5:30 AM CDT [facility] HEMOGLOBIN 11.1(L) 12.0 - 16.0 g/dL 06/11/2024 5:30 AM CDT [facility] HEMATOCRIT 33.7 33.0 - 51.0 % 06/11/2024 5:30 AM CDT [facility] MCV 87 80 - 100 fL 06/11/2024 5:30 AM CDT [facility] MCH 28.8 26.0 - 34.0 pg 06/11/2024 5:30 AM CDT [facility] MCHC 32.9 32.0 - 36.0 g/dL 06/11/2024 5:30 AM CDT [facility] RDW 13.5 11.5 - 15.5 % 06/11/2024 5:30 AM CDT [facility] PLATELET COUNT 296 140 - 440 thou/cu mm 06/11/2024 5:30 AM CDT [facility] MPV 9.8 6.5 - 11.0 fL 06/11/2024 5:30 AM CDT [facility] NRBC 0.0 % 06/11/2024 5:30 AM CDT [facility] ABS NRBC 0.0 thou /cu mm 06/11/2024 5:30 AM CDT [facility] Blood BLOOD SPECIMEN / Unknown Venipuncture / Unknown 06/11/2024 4:48 AM CDT 06/11/2024 5:16 AM CDT Lawrence DORMAN Student HEMATOLOGY [facility] [address] [place] [address] * (ABNORMAL) C-REACTIVE PROTEIN (06/10/2024 4:20 AM CDT) C-REACTIVE PROTEIN 2.1(H) <0.5 mg/dL 06/10/2024 5:01 AM CDT [facility] Blood BLOOD SPECIMEN / Unknown Venipuncture / Unknown 06/10/2024 4:20 AM CDT 06/10/2024 4:27 AM CDT Efraín DORMAN CHEMISTRY [facility] [address] [place] [address], [place] * MR ABDOMEN WO (06/10/2024 2:56 AM CDT) Anatomical Region Laterality Modality Abdomen, LIVER, PANCREAS, KIDNEYS, AORTA Magnetic Resonance 06/10/2024 3:39 AM CDT Narrative 06/10/2024 3:39 AM CDT For Patients: ??As a result of the Cures Act, medical imaging exams and procedure reports are released immediately into your electronic medical record. ??You may view this report before your referring provider. ??If you have questions, please contact your health care provider. Indication: RLQ pain and , evaluate for appendicitis Technique: T1 and T2 MR images (including fat saturated sequences) were captured and reformatted in multiple planes. Comparison: None Findings/Impression: The nondilated appendix is identified arising from the cecum in the right lower quadrant and measures up to 4 mm at the tip (03/15). There is mild T2 signal adjacent to the appendix, which could represent inflammation, but incomplete fat suppression is also possible (06/15). Overall, no definite evidence of acute appendicitis, but early appendicitis could not be entirely excluded either. Intrauterine fetus with no gross abnormality. Unremarkable appearance of the visualized liver, gallbladder, pancreas, spleen, adrenals, kidneys, lung bases, bowel, and osseous structures. Dictated by Efraín Marc MD @ 06/10/2024 3:39:01 AM (Electronically Signed) Procedure Note Efraín Marc MD - 06/10/2024 For Patients: As a result of the Cures Act, medical imagingexams and procedure reports are released immediately into your electronicmedical record. You may view this report before your referring provider.If you have questions, please contact your health care provider. Indication: RLQ pain and , evaluate for appendicitis Technique: T1 and T2 MR images (including fat saturated sequences) were captured andreformatted in multiple planes. Comparison: None Findings/Impression: The nondilated appendix is identified arising from the cecum in the rightlower quadrant and measures up to 4 mm at the tip (03/15). There is mild P0hdocii adjacent to the appendix, which could represent inflammation, butincomplete fat suppression is also possible (06/15). Overall, no definiteevidence of acute appendicitis, but early appendicitis could not beentirely excluded either. Intrauterine fetus with no gross abnormality. Unremarkable appearance ofthe visualized liver, gallbladder, pancreas, spleen, adrenals, kidneys,lung bases, bowel, and osseous structures. Dictated by Efraín Marc MD @ 06/10/2024 3:39:01 AM (Electronically Signed) Efraín DORMAN MR * US ABDOMEN LIMITED RUQ (06/09/2024 7:15 PM CDT) Anatomical Region Laterality Modality Abdomen, LIVER Ultrasound 06/09/2024 9:42 PM CDT Impressions 06/09/2024 9:42 PM CDT 1. Cholelithiasis with borderline thickened wall and reported positive sonographic Cary`s sign, suspicious for cholecystitis in the correct clinical setting. 2. Hepatic steatosis. Dictated by Chantal Montiel MD @ 06/09/2024 9:42:14 PM (Electronically Signed) Narrative 06/09/2024 9:42 PM CDT For Patients: ??As a result of the Century Cures Act, medical imaging exams and procedure reports are released immediately into your electronic medical record. ??You may view this report before your referring provider. ??If you have questions, please contact your health care provider. INDICATION: Right upper quadrant abdomen pain. TECHNIQUE: Ultrasound abdomen limited. ??Sonographic images of the right upper quadrant were obtained using brown-scale and color Doppler images. COMPARISON: None. FINDINGS: Liver: Increased echogenicity. No suspicious masses. ??No intrahepatic biliary dilatation. ?? Gallbladder: Multiple echogenic foci are identified within the gallbladder with posterior shadowing. Borderline thickened wall measuring up to 4 millimeters.. Reported positive sonographic Cary`s sign. Common bile duct: 2 mm. ?? Pancreas: Partially visualized, unremarkable. Right kidney: Normal in size. ??Normal echotexture and cortex. ??No suspicious masses, stones, or hydronephrosis. Vasculature: Proximal abdominal aorta and IVC are unremarkable. ?? Procedure Note Chantal Montiel MD - 06/09/2024 For Patients: As a result of the Cures Act, medical imagingexams and procedure reports are released immediately into your electronicmedical record. You may view this report before your referring provider.If you have questions, please contact your health care provider. INDICATION: Right upper quadrant abdomen pain. TECHNIQUE: Ultrasound abdomen limited. Sonographic images of the right upperquadrant were obtained using brown-scale and color Doppler images. COMPARISON: None. FINDINGS: Liver: Increased echogenicity. No suspicious masses. No intrahepaticbiliary dilatation. Gallbladder: Multiple echogenic foci are identified within the gallbladderwith posterior shadowing. Borderline thickened wall measuring up to 4millimeters.. Reported positive sonographic Cary`s sign. Common bile duct: 2 mm. Pancreas: Partially visualized, unremarkable. Right kidney: Normal in size. Normal echotexture and cortex. Nosuspicious masses, stones, or hydronephrosis. Vasculature: Proximal abdominal aorta and IVC are unremarkable. IMPRESSION: 1. Cholelithiasis with borderline thickened wall and reported positivesonographic Cary`s sign, suspicious for cholecystitis in the correctclinical setting. 2. Hepatic steatosis. Dictated by Chantal Montiel MD @ 06/09/2024 9:42:14 PM (Electronically Signed) Jose D Mccabe MD US * US ABDOMEN LIMITED APPENDIX ONLY (06/09/2024 6:55 PM CDT) Anatomical Region Laterality Modality Abdomen Ultrasound 06/09/2024 9:28 PM CDT Narrative 06/09/2024 9:28 PM CDT For Patients: ??As a result of the Cures Act, medical imaging exams and procedure reports are released immediately into your electronic medical record. ??You may view this report before your referring provider. ??If you have questions, please contact your health care provider. Indication: Right lower quadrant abdominal pain Technique: Ultrasound abdomen limited appendix with color Doppler analysis Comparison: None Impression: The appendix is not identified in the right lower quadrant. No sign of mass, adenopathy, or fluid collection. No findings to explain pain. Dictated by Chantal Montiel MD @ 06/09/2024 9:28:58 PM (Electronically Signed) Procedure Note Chantal Montiel MD - 06/09/2024 For Patients: As a result of the Cures Act, medical imagingexams and procedure reports are released immediately into your electronicmedical record. You may view this report before your referring provider.If you have questions, please contact your health care provider. Indication: Right lower quadrant abdominal pain Technique: Ultrasound abdomen limited appendix with color Doppler analysis Comparison: None Impression: The appendix is not identified in the right lower quadrant. No sign ofmass, adenopathy, or fluid collection. No findings to explain pain. Dictated by Chantal Montiel MD @ 06/09/2024 9:28:58 PM (Electronically Signed) Jose D Mccabe MD US * US OB LIMITED ANY TRI TA (06/09/2024 6:40 PM CDT) Anatomical Region Laterality Modality , 2or 3 TRIMESTER, 1ST TRIMESTER Ultrasound 06/09/2024 9:29 PM CDT Narrative 06/09/2024 9:29 PM CDT For Patients: ??As a result of the Cures Act, medical imaging exams and procedure reports are released immediately into your electronic medical record. ??You may view this report before your referring provider. ??If you have questions, please contact your health care provider. INDICATION: Pain during . Viability check. TECHNIQUE: Ultrasound OB pelvis transabdominal. ??Real-time brown-scale imaging of the fetus was performed as well as color Doppler and spectral Doppler analysis of the umbilical artery. COMPARISON: 04/05/2024. FINDINGS: Single living intrauterine gestation. heart rate: 140 beats per minute. Presentation: Breech. Placenta: Anterior. Amniotic fluid deepest pocket: 4.7 cm. Incidentally visualized anatomy is sonographically unremarkable. Cord Doppler (S/D ratio): 3.7 Cervical length: 4.2 cm IMPRESSION.: Viable intrauterine . No abnormalities seen. Dictated by Efraín Marc MD @ 06/09/2024 9:29:11 PM (Electronically Signed) Procedure Note Efraín Marc MD - 06/09/2024 For Patients: As a result of the Cures Act, medical imagingexams and procedure reports are released immediately into your electronicmedical record. You may view this report before your referring provider.If you have questions, please contact your health care provider. INDICATION: Pain during . Viability check. TECHNIQUE: Ultrasound OB pelvis transabdominal. Real-time brown-scale imaging of thefetus was performed as well as color Doppler and spectral Doppler analysisof the umbilical artery. COMPARISON: 04/05/2024. FINDINGS: Single living intrauterine gestation. heart rate: 140 beats per minute. Presentation: Breech. Placenta: Anterior. Amniotic fluid deepest pocket: 4.7 cm. Incidentally visualized anatomy is sonographically unremarkable. Cord Doppler (S/D ratio): 3.7 Cervical length: 4.2 cm IMPRESSION.: Viable intrauterine . No abnormalities seen. Dictated by Efraín Marc MD @ 06/09/2024 9:29:11 PM (Electronically Signed) Jose D Mccabe MD [place] * (ABNORMAL) TRICHOMONAS, MAR, AND BACTERIAL VAGINOSIS BY TREVON (06/09/2024 3:44 PM CDT) Only the most recent of2 resultswithin the time period is included. MAR SPECIES Positive(A) Negative 06/10/20 4:52 PM CDT [facility] MAR GLABRATA Negative Negative 06/10/2024 4:52 PM CDT [facility] TRICHOMONAS VVA Negative Negative 4:52 PM CDT [facility] BACTERIAL VAGINOSIS Negative Negative 06/10/2024 4:52 PM CDT [facility] Other VAGINAL SWAB / Unknown Non-Blood / Unknown 06/09/2024 3:44 PM CDT 06/09/2024 3:51 PM CDT Jose D Mccabe MD MICROBIOLOGY [facility] [address] [place] [address], [place] * URINALYSIS MICROSCOPIC (06/09/2024 3:44 PM CDT) Only the most recent of2 resultswithin the time period is included. RBC 0-2 0-2, None Seen /HPF 06/09/2024 3:58 PM CDT [facility] WBC 3-5 0-2, 3-5, None Seen /HPF 06/09/2024 3:58 PM CDT [facility] BACTERIA Few None Seen, Rare, Few Bacteria/H PF 06/09/2024 3:58 PM CDT [facility] EPITHELIAL CELLS Few None Seen, Few Epi/HPF 06/09/2024 3:58 PM CDT [facility] Urine URINE SPECIMEN / Unknown Non-Blood / Unknown 06/09/2024 3:44 PM CDT 06/09/2024 3:49 PM CDT Jose D Mccabe MD URINE [facility] [address] [place] [address] * GC CHLAMYDIA TRACH PROBE (06/09/2024 3:44 PM CDT) CHLAMYDIA PROBE Negative 5:29 PM CDT [facility] N GONORRHOEAE PROBE Negative 06/10/2024 5:29 PM CDT [facility] Other VAGINAL SWAB / Unknown Non-Blood / Unknown 06/09/2024 3:44 PM CDT 06/09/2024 3:51 PM CDT Jose D Mccabe MD MICROBIOLOGY [facility] [address] [place] [address], * (ABNORMAL) UA W/ SEDIMENT EXAM REFLEXED PER CRITERIA (06/09/2024 3:44 PM CDT) Only the most recent of2 resultswithin the time period is included. COLOR Yellow Yellow Color 06/09/2024 3:56 PM CDT [facility] CLARITY Clear Clear Clarity 06/09/2024 3:56 PM [facility] SPECIFIC GRAVITY,URINE 1.020 1.010, 1.015, 1.020, 1.025 06/09/2024 3:56 PM [facility] PH,URINE 6.5 6.0, 7.0, 8.0, 5.5, 6.5, 7.5, 8.5 06/09/2024 3:56 PM T [facility] UROBILINOGEN, QUALITATIVE Normal Normal EU/dl 06/09/2024 3:56 PM [facility] PROTEIN, URINE Negative Negative mg/dL 06/09/2024 3:56 PM [facility] GLUCOSE, URINE Negative Negative mg/dL 06/09/2024 3:56 PM [facility] KETONES,URINE Negative Negative mg/dL 06/09/2024 3:56 PM T [facility] BILIRUBIN,URI NE Negative Negative 06/09/2024 3:56 PM [facility] OCCULT BLOOD,URINE Negative Negative 06/09/2024 3:56 PM [facility] NITRITE Negative Negative 06/09/2024 3:56 PM [facility] LEUKOCYTE ESTERASE Trace(A) Negative 06/09/2024 3:56 PM [facility] Urine URINE SPECIMEN / Unknown Non-Blood / Unknown 06/09/2024 3:44 PM CDT 06/09/2024 3:49 PM CDT Jose D Mccabe MD URINE [facility] [address] [place] [address] * (ABNORMAL) CBC WITH AUTO DIFFERENTIAL (06/09/2024 3:38 PM CDT) WHITE BLOOD COUNT 12.0(H) 4.5 - 11.0 thou/cu mm 06/09/2024 4:14 PM T [facility] RED BLOOD COUNT 4.08 4.00 - 5.20 mil/cu mm 06/09/2024 4:14 PM CDT [facility] HEMOGLOBIN 12.4 12.0 - 16.0 g/dL 06/09/2024 4:14 PM CDT [facility] HEMATOCRIT 36.2 33.0 - 51.0 % 06/09/2024 4:14 PM T [facility] MCV 89 80 - 100 fL 06/09/2024 4:14 PM CDT [facility] MCH 30.4 26.0 - 34.0 pg 06/09/2024 4:14 PM T [facility] MCHC 34.3 32.0 - 36.0 g/dL 06/09/2024 4:14 PM T [facility] RDW 13.6 11.5 - 15.5 % 06/09/2024 4:14 PM T [facility] PLATELET COUNT 314 140 - 440 thou/cu mm 06/09/2024 4:14 PM T [facility] MPV 10.1 6.5 - 11.0 fL 06/09/2024 4:14 PM T [facility] Blood BLOOD SPECIMEN / Unknown Venipuncture / Unknown 06/09/2024 3:38 PM CDT 06/09/2024 3:42 PM CDT Jose D Mccabe MD HEMATOLOGY Performing Organization Address City/[facility]/ZIP Co de Phone Number [facility] [address] [place] [address] * (ABNORMAL) RED CELL MORPHOLOGY (06/09/2024 3:38 PM CDT) ELLIPTOCYTES Few 06/09/2024 4:14 PM T [facility] RBC COMMENT Present(A ) RBC morphology appears normal, RBC morphology within normal limits for newborns. 06/09/2024 4:14 PM CDT [facility] Blood BLOOD SPECIMEN / Unknown Venipuncture / Unknown 06/09/2024 3:38 PM CDT 06/09/2024 3:42 PM CDT Jose D Mccabe MD HEMATOLOGY Performing Organization Address City/[facility]/ZIP Co de Phone Number [facility] [address] [place] [address] * PLATELET ESTIMATE (06/09/2024 3:38 PM CDT) PLATELET ESTIMATE Adequate Adequate, No estimate 06/09/2024 4:14 PM CDT [facility] Blood BLOOD SPECIMEN / Unknown Venipuncture / Unknown 06/09/2024 3:38 PM CDT 06/09/2024 3:42 PM CDT Jose D Mccabe MD HEMATOLOGY Performing Organization Address [facility]/ZIP Co de Phone Number [facility] [address] [place] [address] * (ABNORMAL) MANUAL DIFFERENTIAL (06/09/2024 3:38 PM CDT) [facility] % NEUTROPHILS 81.0 % 06/09/2024 4:14 PM [facility] % LYMPHOCYTES 16.0 % 06/09/2024 4:14 PM [facility] % MONOCYTES 2.0 % 06/09/2024 4:14 PM [facility] % EOSINOPHILS 1.0 % 06/09/2024 4:14 PM [facility] % BASOPHILS 0.0 % 06/09/2024 4:14 PM [facility] NEUTROPHILS ABSOLUTE 9.7(H) 1.7 - 7.0 thou/cu mm 06/09/2024 4:14 PM T [facility] LYMPHOCYTES ABSOLUTE 1.9 0.9 - 2.9 thou/cu mm 06/09/2024 4:14 PM [facility] MONOCYTES ABSOLUTE 0.2 <0.9 thou/cu mm 06/09/2024 4:14 PM [facility] EOSINOPHILS ABSOLUTE 0.1 <0.5 thou/cu mm 06/09/2024 4:14 PM CDT [facility] BASOPHILS ABSOLUTE 0.0 <0.3 thou/cu mm 06/09/2024 4:14 PM CDT [facility] Blood BLOOD SPECIMEN / Unknown Venipuncture / Unknown 06/09/2024 3:38 PM CDT 06/09/2024 3:42 PM CDT Jose D Mccabe MD HEMATOLOGY Performing Organization Address [facility] Co de Phone Number [facility] [address] [place] [address] * LIPASE (06/09/2024 3:38 PM CDT) Only the most recent of2 resultswithin the time period is included. Pathologist [facility] LIPASE 20.6 13.0 - 60.0 IU/L 06/09/2024 4:06 PM CDT [facility] Blood BLOOD SPECIMEN / Unknown Venipuncture / Unknown 06/09/2024 3:38 PM CDT 06/09/2024 3:42 PM CDT Jose D Mccabe MD CHEMISTRY Performing Organization Address [facility] de Phone Number [facility] [address] [place] [address] * (ABNORMAL) HEPATIC FUNCTION PANEL (06/09/2024 3:38 PM CDT) Only the most recent of2 resultswithin the time period is included. ALBUMIN 3.8(L) 4.0 - 4.9 g/dL 06/09/2024 4:06 PM CDT [facility] PROTEIN,TOTAL 6.9 6.0 - 8.0 g/dL 06/09/2024 4:06 PM CDT [facility] BILIRUBIN,TOTAL 0.2 0.0 - 1.2 mg/dL 06/09/2024 4:06 PM CDT [facility] BILIRUBIN,DIRECT 0.1 0.0 - 0.2 mg/dL 06/09/2024 4:06 PM CDT [facility] BILIRUBIN,INDIRE CT 06/09/2024 4:06 PM [facility] Comment:Unable to calculate, Direct Bili <0.2 ALK PHOSPHATASE 75 35 - 104 IU/L 06/09/2024 4:06 PM [facility] ALT (SGPT) 9(L) 10 - 35 IU/L 06/09/2024 4:06 PM [facility] AST (SGOT) 13 10 - 35 IU/L 06/09/2024 4:06 PM [facility] Blood BLOOD SPECIMEN / Unknown Venipuncture / Unknown 06/09/2024 3:38 PM CDT 06/09/2024 3:42 PM CDT Jose D Mccabe MD CHEMISTRY [facility] [address] [place] [address] * (ABNORMAL) BASIC METABOLIC PANEL (06/09/2024 3:38 PM CDT) Only the most recent of3 resultswithin the time period is included. SODIUM 137 136 - 145 mmol/L 06/09/2024 4:06 PM [facility] POTASSIUM 3.8 3.5 - 5.1 mmol/L 06/09/2024 4:06 PM [facility] CHLORIDE 103 98 - 107 mmol/L 06/09/2024 4:06 PM [facility] CO2,TOTAL 24 22 - 29 mmol/L 06/09/2024 4:06 PM [facility] ANION GAP 10 5 - 18 06/09/2024 4:06 PM [facility] GLUCOSE 102(H) 70 - 99 mg/dL 06/09/2024 4:06 PM [facility] CALCIUM 9.2 8.6 - 10.0 mg/dL 06/09/2024 4:06 PM [facility] BUN 6 6 - 20 mg/dL 06/09/2024 4:06 PM [facility] CREATININE 0.54 0.50 - 0.90 mg/dL 06/09/2024 4:06 PM CDT [facility] BUN/CREAT RATIO 11 10 - 20 4:06 PM CDT [facility] eGFR >90 >90 mL/min/1.7 3m2 06/09/2024 4:06 PM CDT [facility] Comment:As of 2021, eG FR is calculated by the CKD-EPI creatinine equation without race adjustment. ??eGFR can be influenced by muscle mass, exercise, and diet. ??The reported eGFR is an estimation only and is only applicable if the renal function is stable. Blood BLOOD SPECIMEN / Unknown Venipuncture / Unknown 06/09/2024 3:38 PM CDT 06/09/2024 3:42 PM CDT Jose D Mccabe MD CHEMISTRY Performing Organization Address City/State/[facility] Co de Phone Number [facility] [address] [place] [address] * US ABDOMEN LIMITED GALLBLADDER (06/06/2024 12:22 PM CDT) Anatomical Region Laterality Modality Abdomen Ultrasound 06/06/2024 12:2 7 PM CDT Narrative 06/06/2024 12:27 PM CDT For Patients: ??As a result of the Century Cures Act, medical imaging exams and procedure reports are released immediately into your electronic medical record. ??You may view this report before your referring provider. ??If you have questions, please contact your health care provider. Indication: Abdominal pain TECHNIQUE: Ultrasound gallbladder. Sonographic images of the right upper quadrant were obtained using brown-scale and color Doppler images. Comparison: None FINDINGS: Gallbladder: There is extensive calcified gallstones within the gallbladder with a wall echo sign. No definite pericholecystic fluid. Trace thickening of the gallbladder wall. Common bile duct: 3 mm. ?? Impression: Demonstration of extensive cholelithiasis with a wall echo sign. No definite evidence of acute cholecystitis. Dictated by Db Wood MD @ 06/06/2024 12:27:59 PM (Electronically Signed) Procedure Note Db Wood MD - 06/06/2024 For Patients: As a result of the Cures Act, medical imagingexams and procedure reports are released immediately into your electronicmedical record. You may view this report before your referring provider.If you have questions, please contact your health care provider. Indication: Abdominal pain TECHNIQUE: Ultrasound gallbladder. Sonographic images of the right upper quadrantwere obtained using brown-scale and color Doppler images. Comparison: None FINDINGS: Gallbladder: There is extensive calcified gallstones within thegallbladder with a wall echo sign. No definite pericholecystic fluid.Trace thickening of the gallbladder wall. Common bile duct: 3 mm. Impression: Demonstration of extensive cholelithiasis with a wall echo sign. Nodefinite evidence of acute cholecystitis. Dictated by Db Wood MD @ 06/06/2024 12:27:59 PM (Electronically Signed) Paul Nieves MD US * DNA SCREEN SEND OUT (05/16/2024 12:00 AM CDT) Other (Other) Hiral Ruggiero MD SEND OUTS * US OB 1ST TRI SINGLE TA AND TV (04/05/2024 11:38 PM CDT) Anatomical Region Laterality Modality Ultrasound 04/05/2024 11:4 3 PM CDT Impressions 04/05/2024 11:43 PM CDT Single viable intrauterine measuring 10 weeks 4 days. No abnormalities seen. Dictated by Sandro Choi MD @ 04/05/2024 11:43:30 PM (Electronically Signed) Narrative 04/05/2024 11:43 PM CDT For Patients: ??As a result of the Cures Act, medical imaging exams and procedure reports are released immediately into your electronic medical record. ??You may view this report before your referring provider. ??If you have questions, please contact your health care provider. INDICATION: Pain. TECHNIQUE: Ultrasound OB pelvis transabdominal and transvaginal. ??Real-time brown-scale imaging of the pelvis was performed. COMPARISON: None. FINDINGS: There is a single intrauterine gestation. The embryo demonstrates a regular cardiac rate measuring 167 beats per minute. The embryo`s crown rump length measurement of 3.6 cm corresponds to a gestational age of 10 weeks 4 days with a sonographic due date of 10/28/2024. There is a normal appearing yolk sac. There are no gross abnormalities noted within the embryo at this early state of development. The placenta has not yet developed. There is no sign of perigestational hemorrhage. The ovaries are of normal size. There are no suspicious fluid collections noted in the cul-de-sac. Procedure Note Sandro Choi MD - 04/05/2024 For Patients: As a result of the Cures Act, medical imagingexams and procedure reports are released immediately into your electronicmedical record. You may view this report before your referring provider.If you have questions, please contact your health care provider. INDICATION: Pain. TECHNIQUE: Ultrasound OB pelvis transabdominal and transvaginal. [id number] imaging of the pelvis was performed. COMPARISON: None. FINDINGS: There is a single intrauterine gestation. The embryo demonstrates aregular cardiac rate measuring 167 beats per minute. The embryo`s crownrump length measurement of 3.6 cm corresponds to a gestational age of 10weeks 4 days with a sonographic due date of 10/28/2024. There is a normal appearing yolk sac. There are no gross abnormalitiesnoted within the embryo at this early state of development. The placentahas not yet developed. There is no sign of perigestational hemorrhage. The ovaries are of normal size. There are no suspicious fluid collectionsnoted in the cul-de-sac. IMPRESSION: Single viable intrauterine measuring 10 weeks 4 days. Noabnormalities seen. Dictated by Sandro Choi MD @ 04/05/2024 11:43:30 PM (Electronically Signed) Alicia Albert DO US * URINE CULTURE (04/05/2024 9:51 PM CDT) CULTURE <10,000 CFU/mL multiple organisms 04/06/2024 6:54 PM CDT [facility] Urine URINE SPECIMEN / Unknown Non-Blood / Unknown 04/05/2024 9:51 PM CDT 04/05/2024 9:56 PM CDT Alicia Albert DO MICRO BIOLOGY [facility] 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 Case: [id number] ? Authorizing Provider: ??Hiral Ruggiero ?Collected: ? 03/20/2024 1630 ? MD Kathy ? Ordering Location: ? [facility] ?? Received: ?03/20/2024 1653 ? Clinic ? First Screen: ?Johann Ring ? 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 03/28/2024 1:46 PM CDT [facility] INTERPRETATION/ RESULT NEGATIVE FOR INTRAEPITHELIAL LESION OR MALIGNANCY (NIL) (none) 03/28/2024 1:46 PM CDT [facility] IMEN ADEQUACY Satisfactory for evaluation Endocervical component present 03/28/2024 1:46 PM CDT [facility] HPV REQUEST HPV and PAP 03/28/2024 1:46 PM CDT [facility] Date of LMP 01/21/2024 03/28/2024 1:46 PM CDT [facility] Last Pap Date 09/11/20 03/28/2024 1:46 PM CDT [facility] Last Pap Result NIL 1:46 PM CDT [facility] Abnormal Pap or [place] Bx in last 5 years No 03/28/2024 1:46 PM CDT [facility] Menstrual Status 03/28/2024 1:46 PM CDT [facility] [place] Bx Done Today No 03/28/2024 1:46 PM CDT [facility] Additional Information None given 03/28/2024 1:46 PM CDT [facility] Comment: Cytology is screened at [facility] - [address] [address] and [facility] - [address] [place] [address], [place] [address] and [facility] - [address], [place] [address] Interpreted at [facility] - [address] [place] [address], [place] [address] Automated Review Successful 03/28/2024 1:46 PM CDT [facility] Comment:Specimen processed s uccessfully by automated progressive care unit registered nurse device, [employer] System, [employer] 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 It is used primarily to screen for squamous cancers and precursor lesions. Published studies have shown that it is subject to both false negative and false positive results. The pap test should not be used as the sole means to diagnose or exclude pre-malignant and malignant lesions. 03/28/2024 1:46 PM CDT [facility] Other (Cervical) Non-Blood / Unknown 03/20/2024 4:30 PM CDT 03/20/2024 4:53 PM CDT Hiral Ruggiero MD PATHOLOGY/ CYTOLOGY [facility] [address] [place] [address], * ANTI HCV (03/07/2024 2:12 PM CDT) HEPATITIS C ANTIBODY Non-Reacti ve Non-React josé luis 03/08/2024 6:38 AM CDT [facility] Comment:Please note, per www .CDC.gov: If a patient is known to be at high risk of HCV infection, or is symptomatic, and the physician's suspicion of HCV infection is high, HCV RNA testing is often employed and is of diagnostic value, even after an initial negative anti-HCV test result. Blood BLOOD SPECIMEN / Unknown Venipuncture / Unknown 03/07/2024 2:12 PM CDT 03/07/2024 2:15 PM CDT Hiral Ruggiero MD SEND OUTS [facility] [address] [place] [id number], * ANTI HIV 1/2 (03/07/2024 2:12 PM CDT) HIV-1/HIV-2 SCREEN Non-Reacti ve Non-Reacti ve 03/08/2024 6:46 AM CDT [facility] Comment:HIV-1 p24 and HIV-1/ HIV-2 Ab Not Detected. Blood BLOOD SPECIMEN / Unknown Venipuncture / Unknown 03/07/2024 2:12 PM CDT 03/07/2024 2:15 PM CDT Hiral Ruggiero MD SEND OUTS Performing Organization Address City/[facility]/ZIP Co de Phone Number [facility] [address] [place] [address], from Last 3 Months or Most Recently Relevant to Health Maintenance Advance Directives * Full Code (Latest Code Status on File) Date Activated Date Inactivated Comments 06/10/2024 7:42 AM 06/11/2024 12:38 PM Question Answer Comments Code Status Discussion: Reviewed Preferences * Full Code Date Activated Date Inactivated Comments 12/16/2021 12:03 AM 12/16/2021 2:31 PM Question Answer Comments Code Status Discussion: Reviewed Preferences Care Teams Steel [employer] Relationship Specialty Start Date End Date Amena Jamison DO PCP - General 07/15/09
[2024-06-23 15:40] VITALS: TEMP 36.5
[2024-06-23] MEDS: ACETAMINOPHEN 500 MG TABLET 1000 MG PO (16:02)
[2024-06-23 16:41] LABS: Appearance Urine Clear (Clear); Bilirubin Urine Negative (Negative); Blood Urine Negative (Negative); Color Urine Yellow (Yellow); Glucose Urine Negative (Negative); Ketones Urine Negative (Negative); Leukocyte Esterase Urine Trace (Negative); Nitrite Urine Negative (Negative); Protein Urine Negative (Negative); Specific Gravity Urine 1.025 (1.000-1.030); Urobilinogen Urine 0.2 (0.2-1.0)
[2024-06-23 16:43] LABS: Basophils Percent Auto 0.1 % (0.0-3.0); Eosinophils Percent Auto 0.9 % (0.0-7.0); Hemoglobin* 11.2 gm/dL (12.0-16.0); Immature Granulocytes Pct Auto 0.8 %; Lymphocytes Percent Auto 18.2 % (20-44); Mean Corpuscular HGB Conc 33 gm/dL (32-36); Mean Corpuscular Hemoglobin 29 pg (26-34); Mean Corpuscular Volume 89 fL (80-100); Monocytes Percent Auto 7.7 % (0.0-11.0); Neutrophils Percent Auto 72.3 % (42.0-72.0); Platelet Count* 267 K/uL (140-440); RDW Coefficient of Variation % 13.5 % (11.5-15.5); Red Blood Count 3.83 m/uL (4.00-5.20); White Blood Count* 11.06 K/uL (4.50-11.00)
[2024-06-23 16:44] LABS: Slide Review Reflex No
[2024-06-23 16:54] LABS: RBC Urine 0-2 (0-2); WBC Urine 0-2 (0-5)
[2024-06-23 16:57] LABS: Albumin* 3.6 g/dL (3.3-5.0); Chloride* 104 mmol/L (96-114); Potassium* 3.5 mmol/L (3.6-5.1); Sodium* 133 mmol/L (135-149)
[2024-06-23 16:59] LABS: Creatinine* 0.5 mg/dL (0.5-1.5); Estimated Glomerular Filt Rate 128 ml/min
[2024-06-23 17:00] LABS: Alanine Aminotransferase* 13 U/L (4-35); Alkaline Phosphatase* 59 U/L (40-150); Anion Gap 8 mEq/L (7-15); Aspartate Amino Transferase* 19 U/L (12-35); Bilirubin Total* 0.1 mg/dL (0.1-1.5); Blood Urea Nitrogen* 7 mg/dL (5-24); Calcium* 8.9 mg/dL (8.4-10.6); Carbon Dioxide* 21 mmol/L (20-32); Glucose* 113 mg/dL (60-115); Total Protein* 6.6 g/dL (6.0-8.3)
--- NOTE | 2024-06-23 17:14 | P.OBLDTN_ITS ---
OB - Triage/Final Diagnosis Visit Information Narrative: The patient is a 34 year old 3 para 2 at 21.2 weeks gestation by LMP, who presents with RLQ and suprapubic abdominal pain. She was seen in the ER and [facility] on 06/09 and 06/10 with periumbilical abdominal pain. US showed possible cholecystis and MRI could not rule out early appendicitis. She elected not to have a cholecystectomy but to wait and see how her symptoms do. She also has been found to have a placental beckford on anatomy US. She has seen perinatology and has a repeat ultrasound scheduled next week. She has a history of a and it is not known if her placental beckford is associated with her scar. She has had some suprapubic and RLQ abdominal pain off and on since yesterday. Worse with certain positions and can be worse with walking. Hasn't tried anything for pain. No radiation of the pain. No urinary symptoms. No bleeding or vaginal discharge. Evaluation Laboratory results: Laboratory Tests 06/23/24 06/23/24 Range/Units 16:34 16:30 WBC 11.06 H (4.50-11.00) K/uL RBC 3.83 L (4.00-5.20) m/uL Hgb 11.2 L (12.0-16.0) gm/dL Hct 34.0 (33.0-51.0) % MCV 89 (80-100) fL MCH 29 (26-34) pg MCHC 33 (32-36) gm/dL RDW Coeff of Elena 13.5 (11.5-15.5) % Plt Count 267 (140-440) K/uL Neut % (Auto) 72.3 H (42.0-72.0) % Lymph % (Auto) 18.2 L (20-44) % [place] % (Auto) 7.7 (0.0-11.0) % Eos % (Auto) 0.9 (0.0-7.0) % Baso % (Auto) 0.1 (0.0-3.0) % Neut # (Auto) 8.00 H (1.7-7.0) K/uL Lymph # (Auto) 2.00 (0.90-2.90) K/uL [place] # (Auto) 0.90 (0.00-0.90) K/UL Eos # (Auto) 0.10 (0.00-0.50) K/uL Baso # (Auto) 0.00 (0.00-0.30) K/uL Abs Immat Gran (auto) 0.10 (0.00-0.30) K/uL Imm/Tot Granulo (auto) 0.8 % Sodium 133 L (135-149) mmol/L Potassium 3.5 L (3.6-5.1) mmol/L Chloride 104 (96-114) mmol/L Carbon Dioxide 21 (20-32) mmol/L Anion Gap 8 (7-15) mEq/L BUN 7 (5-24) mg/dL Creatinine 0.5 (0.5-1.5) mg/dL Estimated GFR 128 ml/min Glucose 113 (60-115) mg/dL Calcium 8.9 (8.4-10.6) mg/dL Total Bilirubin 0.1 (0.1-1.5) mg/dL AST 19 (12-35) U/L ALT 13 (4-35) U/L Alkaline Phosphatase 59 (40-150) U/L Total Protein 6.6 (6.0-8.3) g/dL Albumin 3.6 (3.3-5.0) g/dL Urine Color Yellow (Yellow) Urine Appearance Clear (Clear) Urine pH 6.0 (5.0-8.5) Ur Specific [place] 1.025 (1.000-1.030) Urine Protein Negative (Negative) Urine Glucose (UA) Negative (Negative) Urine Ketones Negative (Negative) Urine Blood Negative (Negative) Urine Nitrite Negative (Negative) Urine Bilirubin Negative (Negative) Urine Urobilinogen 0.2 (0.2-1.0) Ur Leukocyte Esterase Trace A (Negative) Urine RBC 0-2 (0-2) Urine WBC 0-2 (0-5) Ur Squamous Epith Cells None (None-Few) Urine Bacteria None (None) Comments: Abdominal exam: Mild tenderness to palpation over suprapubic area and a small area just above the umbilicus. Tenderness continues with flexion of the abdominal wall muscles. No RUQ tenderness. Cary sign negative. Final Diagnosis (1) Abdominal pain affecting : Status: Acute Problem details: Labs essentially normal as above. Will get urine culture to ensure no infection. Pain reduced from 4 to a 1 with a dose of tylenol. Recommend conservative cares for likely musculoskeletal pain. Elected to wait on imaging for today. She has an ultrasound scheduled in 4 days to check placenta. Discussed follow up reasons. Call or return if concerns. Total Time Spent Total Time Spent: 30
== END 2024-06-23 17:25 | disposition home or self-care (01) ==
LOC: OB OUT 15:23 → OB 15:24
PROVIDERS: PCP Family Medicine; Visit Provider Surgery
DX: O26.892 Other specified pregnancy related conditions, second trimester (principal); R10.9 Unspecified abdominal pain; Z3A.21 21 weeks gestation of pregnancy
CPT/HCPCS: 36415; 80053; 81001; 81003; 85025; 87086; G0463; A9270

== ENCOUNTER 2024-07-14 16:11 | Outpatient (CLI) | payer BC, SELFPAY ==
[2024-07-14] VITALS (9 sets, daily range): BP systolic 91–119; BP diastolic 46–57; PULSE 85–103; O2SAT 94–97
--- OUTSIDE RECORDS SUMMARY | 2024-07-14 16:13 | XMS_ITS | Clinical Summary ---
Author Organization [employer] [facility] Address [place], [place] [address] Care Team Providers Care Riveter Helper Name Role Phone Amena Jamison Primary Care Provider [phone] Allergies Active Allergy Reactions Criticality Noted Date Comments Fluoxetine *Unknown 12/16/2021 Serotonin syndrome (vs extreme anxiety reaction) Metoclopramide Hcl Dystonia High 12/23/2016 dystonic reaction. Medications Medication Sig Dispensed Refills Start Date End Date Status propranoloL (INDERAL) 10 mg tabletIndication s:Severe anxiety with panic Take 0.5 Tablets (5 mg) by mouth two times daily. May take 1/2 tablet extra if needed once daily for breakthrough symptoms. 90 Tablet 3 06/04/2023 Active vit no.124/iron/foli c ( VITAMIN ORAL) Take 1 Tablet by mouth once daily. Active famotidine (PEPCID) 20 mg tabletIndication s:Upper abdominal pain Take 1 Tablet (20 mg) by mouth two times daily. 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 06/27/2024 Placental abnormality in second trimester 2023 [facility], Supervision of high-risk 06/20/20 24 Overview (06/21/2024): Stefania Pearl : 1990 REFERRING PROVIDER: Hiral Guillaume MD, Dewar, Primary provider approves scheduling of recommended ultrasounds/testing: Yes MPP ULTRASOUND/TESTING PATIENT Support person name: Albert ULTRASOUND [...] Walls MD, Cardiology, [place] 06/04/23 [facility], psych, 03/10/22 GENETICS: NIPS: low risk CARE COORDINATION: [...] Pap smear for cervical cancer screening 03/29/20 Overview (03/29/2024): 02/2024 NIL/HPV negative. Plan: Pap/HPV due 02/2029. 03/07/2024 Overview (07/13/2024): Primary OB patient of Dr. 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 No evidence of lacunae. No evidence of placenta accreta spectrum. There is a velamentous cord insertion noted today. No evidence of vasa previa noted today.There is no evidence of placenta previa. sex Male Last estimated weight: 545g 90th percentile Additional Ultrasounds: -Follow up growth evaluations recommended at 28 and 34 weeks due to large placental beckford. Vaccination: Flu 2009 Tdap (27-36w) 2017 w/last BMI: Body mass index is 34.77 kg/m . Pre-eclampsia risk on aspirin? {yes/no/NA:46046} LABS: GBS: {gbs:43834} 28wk labs: {28wOBlab:05442} OB labs: ABORH Date Value Ref Range [...] plan: {YES/NO:} Support people at delivery: Circumcision: {yes/no/NA:62852} Feeding plan: {BREAST/BOTTLE:69} Contraception: Obsessive-compulsive disorder with [...] Encounters Date Type Department Care Team Description 07/14/2024 Nurse Triage [facility] [address] [place] [address] Amena Jamison, DO Vaginal Bleeding 07/13/2024 2:45 PM POWER TECHNICIAN OB Encounter [facility] [address] [place] [address] Karen Wagner, Care; Spotting (When wiping) 07/13/2024 Travel 07/13/2024 Nurse Triage [facility] [address] [place] [address] Hiral Gulilaume MD Spotting 06/27/2024 8:23 AM POWER TECHNICIAN - 06/27/2024 11:59 PM POWER TECHNICIAN Hospital Encounter [facility] [address] [facility] [address] [place] [address] Hiral Guillaume MD Velamentous insertion of umbilical cord in second trimester (Primary Dx); Supervision of high risk in second trimester; Placental abnormality in second trimester; H/O: ; Second trimester ; High-risk in second trimester; Placenta, abnormal, second trimester 06/27/2024 Travel 06/23/2024 Orders Only [facility] Scanner 1 scan: (1-Ord) [facility], URINE CULTURE, 06/23/2024 06/23/2024 Orders Only [facility] Scanner 1 scan: (1-Ord) [facility], URINE CULTURE, 06/23/2024 06/23/2024 Orders Only [facility] Scanner 1 scan: (1-Ord) [facility], URINE CULTURE, 06/23/2024 06/23/2024 Orders Only [facility] Scanner 1 scan: (1-Ord) [facility], MULTIPLE LABS, 06/23/2024 06/23/2024 Nurse Triage [facility] [address] [facility] [address] Hiral Guillaume MD Abdominal Pain 06/20/2024 Transcribe Orders [facility] [address] [facility] [address] [place] [address] Hiral Guillaume MD 06/20/2024 Orders Only [facility] [address] [place] [address] Hiral Guillaume MD <No scans attached> 06/19/2024 1:50 PM CDT OB Encounter [facility] [address] [place] [address] Hiral Guillaume MD Care (20 weeks 5 days) 06/19/2024 1:00 PM CDT Ancillary Procedure [facility] [address] [place] [address] 06/19/2024 Travel 06/12/2024 10:00 AM CDT Office Visit [facility] [address] [place] [address] Bernardino Ocasio MD Consult (Gallbladder) 06/12/2024 Telephone [facility] [address] [place] [address] Hiral Guillaume MD Medication Management ( vitamins) 06/12/2024 Travel 06/11/2024 Telephone [facility] [address] [place] [address] Cathy Alaniz PharmD Abnormal Lab Results 06/10/2024 12:55 AM CDT - 06/11/2024 10:33 AM CDT Emergency [facility] [address] [place] [address] Efraín Odom, Sera Ramos MD [facility] [place] Elizabeth DO Barnard, Kayla Julia, PA Royston, Princess Dalal MD RLQ abdominal pain (Primary Dx) Discharge Disposition: Home Self Care 06/10/2024 Travel 06/09/2024 3:09 PM CDT - 06/09/2024 11:52 PM CDT Emergency [facility] [address] [place] [address] Jose D Mccabe MD Bailey, Joshua Anthony, MD Abdominal pain during in second trimester (Primary Dx); Acute bilateral low back pain without sciatica; Vaginal discharge during in second trimester; Spotting affecting in second trimester; Leukocytosis, unspecified type Discharge Disposition: Short Term/PPS Hosp 06/09/2024 2:50 PM CDT Office Visit [facility] [address] [place] [address] Problem (Feeling abdominal discomfort- describes like period cramps. Lower back discomfort. Starting 2-3 days ago. Today noted green vaginal discharge with some vaginal spotting today x 1.) 06/09/2024 Travel 06/06/2024 10:09 AM CDT - 06/06/2024 12:52 PM CDT Emergency [facility] [address] [place] [address] Paul Nieves MD Upper abdominal pain (Primary Dx); , unspecified gestational age; Calculus of gallbladder without cholecystitis without obstruction Discharge Disposition: Home Self Care 06/06/2024 Travel 06/06/2024 Nurse Triage [facility] [address] [place] [address] Hiral Guillaume MD Abdominal Pain 05/27/2024 Orders Only [facility] [address] [place] [address] Hiral Guillaume MD 1 scan: (1-Ord) GENE NICK, DNA SCREEN SEND OUT, 05/16/2024 05/16/2024 1:25 PM CDT OB Encounter [facility] [address] [place] [address] Hiral Guillaume MD Care (15w 6 days); Medication Management (questions on what pre- to take. ) 05/16/2024 Travel from Last 3 Months Immunizations Name [...] Estimated Date of Delivery 03/07/2024 - Present (07/14/2024) 11/01/2024 (set by Cat Fay RN on 03/17/2024 based on Ultrasound on 03/17/2024) Dating Summary Based On [place] Diff Last Menstrual Period on 01/21/2024 (Exact Date) 10/27/2024 +5d Comment:period is currently late Ultrasound on 03/17/2024 11/01/2024 Working GA:7w2d Alternate BIRDIE Entry 10/27/2024 +5d Vitals Pregravid Weight Height TWG (As of 07/14/2024) Pregrav id BMI 1.575 m (5' 2) [...] not displayed here. See encounter summary. 4 21w6d Inpatient data not displayed here. See encounter summary. Notes Progress Notes - OB Encounte r - 07/13/2024 - GA:24w1d 07/13/2024 - 24w1d - Karen Wagner, Patient typically sees Dr Guillaume. She was triaged today due to light pink when wiping. patient accounts specialist instructed her to go to ER, we asked patient to come here as symptoms were reported as below. She is at 24wks. She had intercourse Wednesday. Sat she noted light pink with wiping only. No spotting or bleeding otherwise. 'comes and goes, not every time wipes. Twice today. 'little bit Cramping' says 'not as much as would have' previously she says. +FM No vaginal discharge but today noticed itchy and burny feeling vaginally. Has had yeast infections. 'I always get them' has been complicated by large placental beckford for which she saw perinatology. That note is reviewed in her anatomy US. Is getting follow up growth US's due to placental beckford as these can be associated with FGR. She was also noted to have velamentous cord insertion. Per note, Velamentous umbilical cord insertion occurs in 1% of fetuses and is more common (up to 15%) in multiple pregnancies. There is an increase in association with vasa previa which was not seen today. The risk from the velamentous cord insertion is slight On exam, Gen: pleasant female, no acute distress Abdomen: FH c/w dates. Nttp. FHT 145 : normal external genitalia. Speculum placed. Cervix with small superficial varicosity along 12:00 region cervix. No active bleeding. Mild white discharge. Assessment: 24wk with blood tinged discharge with wiping intermittently after recent intercourse. Plan: blood tinge with wiping likely from recent intercourse and possibly irritated varicosity. No active bleeding. Concerning s/s reviewed, she has not had these. Keep follow up Wednesday with Dr Guillaume R TECHNICIAN Progress Notes - OB Encounte r - 06/19/2024 - GA:20w5d 06/19/2024 - 20wd - Hiral Guillaume MD S: Patient here today for routine [...] Return in 4wks for OB FU. Hiral Guillaume MD .................... 06/19/2024 1:47 PM Progress Notes - Hospital En counter - 06/11/2024 - GA:19w4d 06/11/2024 - - Rosendo Mcgarry MD GENERAL SURGERY PROGRESS NOTE SUBJECTIVE: Resolved RLQ pain. Normalized WBC. Tolerating clear liquids. Complains of occasional RUQ pain. OBJECTIVE: BP 94/50 (Cuff Size: Adult Regular) Pulse 86 Temp 97.9 F (36.6 C) Resp 18 Ht 1.575 m (5' 2) Wt 87.6 kg (193 lb 1.6 oz) LMP 01/21/2024 (Exact Date) Comment: period is currently late SpO2 96% BMI 35.32 kg/m Temp (24hrs), Av.9 F (36.6 C), Min:97.8 F (36.6 C), Max:98.1 F (36.7 C) Patient Vitals for the past 72 hrs: Weight 06/10/24 0051 87.6 kg (193 lb 1.6 oz) No intake or output data in the 24 hours ending 06/11/24 1011 PHYSICAL EXAM: RESPIRATORY: Normal CARDIOVASCULAR: Normal ABDOMEN: soft, non distended. No rebound tendrness or guarding. Recent Labs 06/09/24 1538 06/06/24 1031 SODIUM 137 137 POTASSIUM 3.8 3.7 CHLORIDE 103 102 [id number] 24 22 BUN 6 6 CREATININE 0.54 [...] MD .................... 06/11/2024 10:11 AM 06/11/2024 - 19wantolin - Xochitl Vidales MD OB PROGRESS NOTE SUBJECTIVE: Patient doing well. Pain much improved. No vaginal bleeding or leaking fluid. Maybe feeling flutters but no gross movements yet. Very happy that her WBC is improved and that she does not need surgery. Happy to go home today and has a general surgery appointment for her gallstones tomorrow in [facility] and will ask about the appendectomy if needed prior 3rd trimester. Discussed surgery in and timing. All questions and concerns addressed. heart today is reassuring 130-140s via doptones. OBJECTIVE: BP 94/50 (Cuff Size: Adult Regular) Pulse 86 Temp 97.9 F (36.6 C) Resp 18 Ht 1.575 m (5' 2) Wt 87.6 kg (193 lb 1.6 oz) LMP 01/21/2024 (Exact Date) Comment: period is currently late SpO2 96% BMI 35.32 kg/m Temp (24hrs), Av.9 F (36.6 C), Min:97.8 F (36.6 C), Max:98.1 F (36.7 C) Patient Vitals for the past 72 hrs: [...] 137 POTASSIUM 3.8 3.7 CHLORIDE 103 102 [id number] 24 22 BUN 6 6 CREATININE 0.54 [...] this morning. Resume routine OB care at [facility]. Continue to follow up with General surgery [...] discharge to home this morning. 06/11/2024 - - John Downey RN Discharge Note Data: [...] Size: Adult Regular) Pulse 77 Temp 98.1 F (36.7 C) Resp 16 Ht 1.575 m (5' 2) Wt 87.6 kg (193 lb 1.6 oz) LMP 01/21/2024 (Exact Date) Comment: period is currently late SpO2 94% BMI 35.32 kg/m Progress: stable Additional Nursing Focus Areas (include assessment, interventions and evaluation details as appropriate): Activity (Last 8 Hours) JH-AMP Row Name 06/11/24 0400 JH-AMP Mobility Highest Level of Mobility Performed Walked 10 steps or more Level of Assistance Independent Equipment None Independent and Nutrition: Clear liquids Goals/Barriers: Patient Goals for Next Shift: pain management, promote comfort, possible lap appy today Discharge Plan/Barriers to Discharge: pending Yodit Blair RN .................... 06/11/2024 6:31 AM 06/10/20243d - John Downey RN Nursing Transfer In Note Data: Stefania Pearl arrived to room E3161 via wheelchair from ER at 1600. Report received from ipass RN. Received belongings along with the patient. Action: Patient oriented to room, call system, and unit routine. Plan of care reviewed with patient/family. Response: Patient tolerated transfer. 06/10/2024 - Tressa Acosta RN Patient tolerating clear liquid diet lunch w/o increase in pain, nausea. Has not used any PRNs thus far. 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 with a history [...] Objective Vitals (24h min/max) Temp Min: 97.8 F (36.6 C) Max: 98.2 F (36.8 C) Resp Min: 16 Max: 18 BP Min: 105/71 Max: 145/82 SpO2 Min: 95 % Max: 100 % Pulse Min: 67 Max: 95 Room Air Wt.: 87.6 kg (193 lb 1.6 oz) (06/10/2450) Change from Previous Wt Lb: 0 (06/10/2450) Last documented BM: None on file EXAM: [...] 1538 SODIUM 137 POTASSIUM 3.8 CHLORIDE 103 [id number] 24 ANIONGAP 10 BUN 6 CREATININE 0.54 [...] Comments On 06/10/2024, I have reviewed the product marketing consultant(s) note. On 06/10/2024, I have discussed [...] no abnormalities seen. HR 140 bpm. Plan: -CERTIFIED DIETARY MANAGER consult - Continue vitamin - Follow up [...] by RED Singh. DANDY Vazquez - Hospitalist, [facility] Progress Notes - OB Encounte r - 05/16/2024 - GA:15w6d 05/16/2024 - 15w6d - Hiral Guillaume MD S: Patient here today for routine [...] Return in 4wks for OB FU. Hiral Guillaume MD .................... 05/16/2024 1:35 PM Progress Notes - OB Encounte r - 03/20/2024 - GA:7w5d 03/20/2024 - 7w5d - Hiral Guillaume MD Clinic Note: First OB Visit 03/20/2024 [...] is currently late SpO2 100% BMI 34.66 kg/m General Appearance: Alert, well-developed, well-nourished, with appropriate [...] of Z3A.01 3. Cervical cancer screening Z12.4 TOP SCREW THIN PREP PAP SCREEN IMAGED 4. Vaginal discharge N89.8 TRICHOMONAS, NGUYỄN, AND BACTERIAL VAGINOSIS BY TREVON 1. First [...] the office with any questions or concerns. Hirla Guillaume MD .................... 03/20/2024 3:57 PM Progress Notes [...] Name of Partner or Father of baby: [facility]. MENSTRUAL HISTORY: Patient's last menstrual period was [...] of estimated date of delivery: Yes Thalassemia (Prydeinig, Jamaican, Mediterranean, or background): MCV less than 80: No Neural tube defect (Meningomyelocele, Spina bifida, or Anencephaly): No Congenital heart defect: No Down syndrome: No Deep-Sachs (Ashkenazi Hindu, Cajun, Persian [place]): No Hiram disease (Ashkenazi Hindu): No Familial dysautonomia (Ashkenazi Hindu): No Sickle cell disease or trait (): No Hemophilia or other blood disorders: No Muscular dystrophy: No Cystic fibrosis: No Terell's chorea: No Intellectual disability and/or autism: No [...] Comment: period is currently late BMI 34.38 kg/m ,URINE (no units) Date Value 03/05/2024 Positive (Positive) ASSESSMENT/PLAN: No diagnosis found. EDUCATION/PATIENT INSTRUCTIONS - Advised patient to start/continue vitamin. - Discussed risk of using alcohol, tobacco, other drugs in . - Discussed healthy lifestyle in . - Provided copy of Beginnings book and book inserts, discussed [id number] medications, and follow up. - Encouraged patient to call clinic at [phone] with any vaginal bleeding, fluid leaking from [...] Sign Reading Time Taken Comments Blood Pressure 110/72 07/13/2024 3:05 PM POWER TECHNICIAN Pulse 85 07/13/2024 3:05 PM POWER TECHNICIAN Temperature 36.6 C (97.9 F) 06/11/2024 8:42 AM CDT Respiratory Rate 18 06/11/2024 8:42 AM CDT Oxygen Saturation 97% 07/13/2024 3:05 PM POWER TECHNICIAN Inhaled Oxygen Concentration - - Weight 94.3 kg (208 lb) 07/13/2024 3:05 PM POWER TECHNICIAN Height 157.5 cm (5' 2) 06/10/2024 12:51 AM CDT Body Mass Index 38.04 06/10/2024 12:51 AM CDT Plan of Treatment Upcoming Encounters Date Type Department Care Team (Late st Contact Info) Description 07/17/2024 11:30 AM POWER TECHNICIAN OB Encounter [facility] [address] [place] [address] Hiral Guillaume MD [address] [place] [address] 08/14/2024 10:45 AM POWER TECHNICIAN Appointment [facility] [address] [place], [place] [address] 08/21/2024 11:30 AM POWER TECHNICIAN OB Encounter [facility] [address] [place] [address] Hiral Guillaume MD [address] [place] [address] 09/25/2024 12:30 PM POWER TECHNICIAN Appointment [facility] [address] [place] [address] Health Maintenance Due Date Last Done Comments [...] booster 06/18/2027 06/18/2017, 04/23 (Completed outside of [facility]), 05/05/2006 Pap test for age 21-65 03/20/2029 , 03/20/2024, 09/11/2020, Additional history exists Tdap Completed 06/18/2017, 05/05/2006 HIV for age 15-65 Completed 03/07/2024, , 09/11/2016, Additional history exists Hepatitis C screening for age 18-79 Completed 03/07/2024 Pneumococcal series for age 6-64 Aged Out No longer eligible based on patient's age to complete this topic Procedures Procedure Name Priority Date/Time Associated Diagnosis Comments TRICHOMONAS, NGUYỄN, AND BACTERIAL VAGINOSIS BY TREVON Routine 07/13/2024 3:29 PM POWER TECHNICIAN Second trimester US OB DETAIL ANATOMY SINGLE Routine 06/27/2024 9:49 AM POWER TECHNICIAN High-risk in second trimester SCAN-PATHOLOGY REPORT 06/23/2024 12:00 AM CDT SCAN-PATHOLOGY REPORT 06/23/2024 12:00 AM CDT SCAN-PATHOLOGY REPORT 06/23/2024 12:00 AM CDT SCAN-LABORATORY REPORT 06/23/2024 12:00 AM CDT US OB BASIC ANATOMY SCREEN SINGLE TA [...] MICROSCOPIC STAT 06/09/2024 3:44 PM CDT TRICHOMONAS, NGUYỄN, AND BACTERIAL VAGINOSIS BY TREVON STAT 06/09/2024 [...] for supervision of low-risk in second trimester TOP SCREW THIN PREP PAP SCREEN IMAGED Routine 03/20/2024 4:30 PM CDT Cervical cancer screening ANTI HIV 1/2 Routine 03/07/2024 2:12 PM CDT Encounter for supervision of other normal in first trimester ANTI HCV Routine 03/07/2024 2:12 PM CDT Encounter for supervision of other normal in first trimester from Last 3 Months or Most Recently Relevant to Health Maintenance Results * TRICHOMONAS, NGUYỄN, AND BACTERIAL VAGINOSIS BY TREVON (07/13/2024 3:29 PM POWER TECHNICIAN) Only the most recent of2 resultswithin the time period is included. NGUYỄN SPECIES Negative Negative 4 11:59 AM POWER TECHNICIAN [facility] NGUYỄN GLABRATA Negative Negative 07/14/2024 11:59 AM POWER TECHNICIAN [facility] TRICHOMONAS VVA Negative Negative 4 11:59 AM POWER TECHNICIAN [facility] BACTERIAL VAGINOSIS Negative Negative 07/14/2024 11:59 AM POWER TECHNICIAN [facility] Other VAGINAL SWAB / Unknown Non-Blood / Unknown 07/13/2024 3:29 PM POWER TECHNICIAN 07/13/2024 3:44 PM POWER TECHNICIAN Karen Wagner DO MICROBIOLOGY [facility] 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 presentation is Breech. EFW 545 grams, percentile: 90. Growth parameters and estimated weight are appropriate for gestational age. No major structural anomalies identified. No markers for aneuploidy identified. Normal Deepest Vertical Pocket of amniotic fluid: 7.78 cm. Placental location: Anterior, posterior, fundal. The previously noted placental beckford was again seen away from the prior scar. No evidence of lacunae. No evidence of placenta accreta spectrum. There is a velamentous cord insertion noted today. No evidence of vasa previa noted today. There is no evidence of placenta previa. The transabdominal cervical length is 3.1 cm. RECOMMENDATIONS: -Return to primary provider for continued care. -Follow up growth evaluations recommended at 28 and 34 weeks due to large placental beckford. -The patient was directed to schedule with MPP as discussed at their visit today. -Patient directed to schedule at the front end driver on the way out, or to call MPP within 2 business days to schedule follow up. COMMENT: Present findings are reassuring. The patient was seen by the Perinatologist today. The previous ultrasound and the records were reviewed. The results of today's ultrasound were communicated to the patient. We discussed the finding of a placental beckford. Some studies associate lakes >3cm in greatest dimension with growth restriction. Reassurance was given as EFW was at the 90th centile today. We discussed the recommendation for follow up as noted above. Velamentous umbilical cord insertion occurs in 1% of fetuses and is more common (up to 15%) in multiple pregnancies. There is an increase in association with vasa previa which was not seen today. The risk from the velamentous cord insertion is slight. New government regulations related to the Cures act require that this note be released to the patient immediately, sometimes before the referring provider has been contacted. A portion of the information was presented verbally to the patient. The remainder is submitted as background for the referring provider, to be discussed as needed. Medical Decision Making: Moderate Level 58780 Moderate number/complexity of problems including an undiagnosed new problem with uncertain prognosis or an acute illness with systemic symptoms for mother or fetus, etc. Moderate amount and/or complexity of Data reviewed and analyzed including review of prior ultrasound, ordering another ultrasound, and review of prior external notes, etc. Moderate risk of morbidity or mortality related to underlying conditions Services Provided: Procedures Code DETAIL ANATOMY 52454.0 Procedure Note Praveen Rangel, DO - 06/27/2024 Referred By: HIRAL GUILLAUME IndicationsCode 21 weeks gestation of [id number].21 Large anterior placental beckford, pt with hx of prior C/S BMI > 35 Cholecystitis in , pt has deferred cholecystectomy Hx C/Sx1 2009 - arrest of dilitation, oligo, chorio Hx 2017 Low Risk NIPT IMPRESSION: Intrauterine at 21w 6d. presentation is Breech. EFW 545 grams, percentile: 90. Growth parameters and estimated weight are appropriate forgestational age. No major structural anomalies identified. No markers for aneuploidy identified. Normal Deepest Vertical Pocket of amniotic fluid: 7.78 cm. Placental location: Anterior, posterior, fundal. The previously notedplacental beckford was again seen away from the prior scar. No evidence of lacunae. Noevidence of placenta accreta spectrum. There is a velamentous cord insertion noted today. Noevidence of vasa previa noted today. There is no evidence of placenta previa. The transabdominal cervical length is 3.1 cm. RECOMMENDATIONS: -Return to primary provider for continued care. -Follow up growth evaluations recommended at 28 and 34 weeks due to largeplacental beckford. -The patient was directed to schedule with MPP as discussed at their visittoday. -Patient directed to schedule at the front end driver on the way out, or to callMPP within 2 business days to schedule follow up. COMMENT: Present findings are reassuring. The patient was seen by thePerinatologist today. The previous ultrasound and the records were reviewed. The resultsof today's ultrasound were communicated to the patient. We discussed the finding of a placental beckford. Some studies associatelakes >3cm in greatest dimension with growth restriction. Reassurance was given as EFW wasat the 90th centile today. We discussed the recommendation for follow up as noted above. Velamentous umbilical cord insertion occurs in 1% of fetuses and is morecommon (up to 15%) in multiple pregnancies. There is an increase in association with vasaprevia which was not seen today. The risk from the velamentous cord insertion is slight. New government regulations related to the Cures act requirethat this note be released to the patient immediately, sometimes before the referringprovider has been contacted. A portion of the information was presented verbally to thepatient. The remainder is submitted as background for the referring provider, to be discussed asneeded. Medical Decision Making: Moderate Level 89045 Moderate number/complexity of problems including an undiagnosed newproblem with uncertain prognosis or an acute illness with systemic symptoms for mother or fetus,etc. Moderate amount and/or complexity of Data reviewed and analyzedincluding review of prior ultrasound, ordering another ultrasound, and review of prior externalnotes, etc. Moderate risk of morbidity or mortality related to underlyingconditions Services Provided: ProceduresCode DETAIL [id number] Hiral Guillaume MD US * SCAN-PATHOLOGY REPORT (06/23/2024 12:00 AM CDT) Only the most recent of3 resultswithin the time period is included. Scanner OTHER * SCAN-LABORATORY REPORT (06/23/2024 12:00 AM CDT) Scanner OTHER * US OB BASIC ANATOMY SCREEN SINGLE TA (06/19/2024 1:32 PM CDT) Anatomical Region Laterality Modality , 2or 3 TRIMESTER Ultrasound 06/19/2024 3:34 PM CDT Impressions 06/19/2024 3:34 PM CDT Concordance of clinical and sonographic dating. No intrinsic abnormalities noted on anatomic survey. Large placental beckford measuring 8.4 x 1.6 x 5.3 cm. Dictated by Efraín Griggs MD @ 06/19/2024 3:34:01 PM (Electronically Signed) Narrative 06/19/2024 3:34 PM CDT For Patients: As a result of the Century Cures Act, medical imaging exams and procedure reports are released immediately into your electronic medical record. You may view this report before your referring provider. If you have questions, please contact your health care provider. INDICATION: Evaluate anatomy. COMPARISON: 06/09/2024 TECHNIQUE: Real time brown scale imaging of the fetus was performed as well as color Doppler analysis of the umbilical vessels. FINDINGS: Sonographic imaging demonstrates a single living intrauterine gestation. Fetus demonstrates a regular cardiac rate of 153 beats per minute. Fetus has a vertex position. The placenta lies anteriorly without evidence of placenta previa. Anechoic collection of fluid within the placenta measuring 8.4 x 1.6 x 5.3 cm. Amniotic fluid volume appears normal. Single deepest vertical pocket: 5.3 cm. The cervix is closed and measures 4.8 cm in length. The composite ultrasound gestational age is calculated at [...] cavum septi pellucidi, cisterna magna and cerebellum. The nose, lips, and facial profile appear normal. The cervical, thoracic and lumbar spine are well visualized and appear normal. There is a normal four-chamber heart view and the left and right ventricular outflow tracts appear normal. The diaphragm and stomach appear normal. The kidneys and bladder also appear normal. There is a normal three-vessel cord and cord insertion site. The four extremities appear normal. Procedure Note Efraín Griggs MD - 06/19/2024 [...] @ 06/19/2024 3:34:01 PM (Electronically Signed) Hiral Guillaume MD US * (ABNORMAL) CBC no diff AM (06/11/2024 4:48 AM CDT) Only the most recent of3 resultswithin the time period is included. WHITE BLOOD COUNT 9.9 4.5 - 11.0 thou/cu mm 06/11/2024 5:30 AM CDT [facility] RED BLOOD COUNT 3.86(L) 4.00 - 5.20 mil/cu mm 06/11/2024 5:30 AM CDT [facility] HEMOGLOBIN 11.1(L) 12.0 - 16.0 g/dL 06/11/2024 5:30 AM CDT [facility] HEMATOCRIT 33.7 33.0 - 51.0 % 06/11/2024 5:30 AM CDT [facility] MCV 87 80 - 100 fL 06/11/2024 5:30 AM CDT [facility] MCH 28.8 26.0 - 34.0 pg 06/11/2024 5:30 AM CDT [facility] MCHC 32.9 32.0 - 36.0 g/dL 06/11/2024 5:30 AM CDT [facility] RDW 13.5 11.5 - 15.5 % 06/11/2024 5:30 AM CDT [facility] PLATELET COUNT 296 140 - 440 thou/cu mm 06/11/2024 5:30 AM CDT [facility] MPV 9.8 6.5 - 11.0 fL 06/11/2024 5:30 AM CDT [facility] NRBC 0.0 % 06/11/2024 5:30 AM CDT [facility] ABS NRBC 0.0 thou /cu mm 06/11/2024 5:30 AM CDT [facility] Blood BLOOD SPECIMEN / Unknown Venipuncture / Unknown 06/11/2024 4:48 AM CDT 06/11/2024 5:16 AM CDT Lawrence DORMAN Student HEMATOLOGY Performing Organization Address City/[facility]/ZIP Co de Phone Number [facility] [address] [place] [address], [place] * (ABNORMAL) C-REACTIVE PROTEIN (06/10/2024 4:20 AM CDT) C-REACTIVE PROTEIN 2.1(H) <0.5 mg/dL 06/10/2024 5:01 AM CDT [facility] Blood BLOOD SPECIMEN / Unknown Venipuncture / Unknown 06/10/2024 4:20 AM CDT 06/10/2024 4:27 AM CDT Efraín DORMAN CHEMISTRY Performing Organization Address City/[facility] Co de Phone Number [facility] [address] [address], [place] * MR ABDOMEN WO (06/10/2024 2:56 AM CDT) Anatomical Region Laterality Modality Abdomen, LIVER, PANCREAS, KIDNEYS, AORTA Magnetic Resonance 06/10/2024 3:39 AM CDT Narrative 06/10/2024 3:39 AM CDT For Patients: As a result of the Century Cures Act, medical imaging exams and procedure reports are released immediately into your electronic medical record. You may view this report before your referring provider. If you have questions, please contact your health care provider. Indication: RLQ pain and , evaluate for appendicitis Technique: T1 and T2 MR images (including fat saturated sequences) were captured and reformatted in multiple planes. Comparison: None Findings/Impression: The nondilated appendix is identified arising from the cecum in the right lower quadrant and measures up to 4 mm at the tip (/). There is mild T2 signal adjacent to the appendix, which could represent inflammation, but incomplete fat suppression is also possible (/). Overall, no definite evidence of acute appendicitis, [...] up to 4 mm at the tip (/). There is mild F6vosbjn adjacent to the appendix, which could represent inflammation, butincomplete fat suppression is also possible (/). Overall, no definiteevidence of acute appendicitis, but [...] Narrative 06/09/2024 9:42 PM CDT For Patients: As a result of the Cures Act, medical imaging exams and procedure reports are released immediately into your electronic medical record. You may view this report before your referring provider. If you have questions, please contact your health care provider. INDICATION: Right upper quadrant abdomen pain. TECHNIQUE: Ultrasound abdomen limited. Sonographic images of the right upper quadrant were obtained using brown-scale and color Doppler images. COMPARISON: None. FINDINGS: Liver: Increased echogenicity. No suspicious masses. No intrahepatic biliary dilatation. Gallbladder: Multiple echogenic foci are identified within the gallbladder with posterior shadowing. Borderline thickened wall measuring up to 4 millimeters.. Reported positive sonographic Cary`s sign. Common bile duct: 2 mm. Pancreas: Partially visualized, unremarkable. Right kidney: Normal in size. Normal echotexture and cortex. No suspicious masses, stones, or hydronephrosis. Vasculature: Proximal abdominal aorta and IVC are unremarkable. Procedure Note Chantal Montiel MD - 06/09/2024 [...] Narrative 06/09/2024 9:28 PM CDT For Patients: As a result of the Cures Act, medical imaging exams and procedure reports are released immediately into your electronic medical record. You may view this report before your referring provider. If you have questions, please contact your health [...] Narrative 06/09/2024 9:29 PM CDT For Patients: As a result of the Cures Act, medical imaging exams and procedure reports are released immediately into your electronic medical record. You may view this report before your referring provider. If you have questions, please contact your health care provider. INDICATION: Pain during . Viability check. TECHNIQUE: Ultrasound OB pelvis transabdominal. Real-time brown-scale imaging of the fetus was performed [...] Signed) Jose D Mccabe MD [place] * URINALYSIS MICROSCOPIC (06/09/2024 3:44 PM CDT) RBC 0-2 0-2, None Seen /HPF 06/09/2024 3:58 PM CDT [facility] WBC 3-5 0-2, 3-5, None Seen /HPF 06/09/2024 3:58 PM CDT [facility] BACTERIA Few None Seen, Rare, Few Bacteria/H PF 06/09/2024 3:58 PM CDT [facility] EPITHELIAL CELLS Few None Seen, Few Epi/HPF 06/09/2024 3:58 PM CDT [facility] Urine URINE SPECIMEN / Unknown Non-Blood / Unknown 06/09/2024 3:44 PM CDT 06/09/2024 3:49 PM CDT Jose D Mccabe MD URINE Performing Organization Address City/[facility]/ZIP Co de Phone Number [facility] [address] [place] [id number] * GC CHLAMYDIA TRACH PROBE (06/09/2024 3:44 PM CDT) CHLAMYDIA PROBE Negative 5:29 PM CDT [facility] N GONORRHOEAE PROBE Negative 06/10/2024 5:29 PM CDT [facility] Other VAGINAL SWAB / Unknown Non-Blood / Unknown 06/09/2024 3:44 PM CDT 06/09/2024 3:51 PM CDT Jose D Mccabe MD [facility] [address] [place] [address], * (ABNORMAL) UA W/ SEDIMENT EXAM REFLEXED PER CRITERIA (06/09/2024 3:44 PM CDT) COLOR Yellow Yellow Color 06/09/2024 3:56 PM CDT [facility] CLARITY Clear Clear Clarity 06/09/2024 3:56 PM CDT [facility] SPECIFIC GRAVITY,URINE 1.020 1.010, 1.015, 1.020, 1.025 06/09/2024 3:56 PM T [facility] PH,URINE 6.5 6.0, 7.0, 8.0, 5.5, 6.5, 7.5, 8.5 06/09/2024 3:56 PM T [facility] UROBILINOGEN, QUALITATIVE Normal Normal EU/dl 06/09/2024 3:56 PM T [facility] PROTEIN, URINE Negative Negative mg/dL 06/09/2024 3:56 PM T [facility] GLUCOSE, URINE Negative Negative mg/dL 06/09/2024 3:56 PM T [facility] KETONES,URINE Negative Negative mg/dL 06/09/2024 3:56 PM T [facility] BILIRUBIN,URI NE Negative Negative 06/09/2024 3:56 PM T [facility] OCCULT BLOOD,URINE Negative Negative 06/09/2024 3:56 PM [facility] NITRITE Negative Negative 06/09/2024 3:56 PM T [facility] LEUKOCYTE ESTERASE Trace(A) Negative 06/09/2024 3:56 PM [facility] Urine URINE SPECIMEN / Unknown Non-Blood / Unknown 06/09/2024 3:44 PM CDT 06/09/2024 3:49 PM CDT Jose D Mccabe MD URINE [facility] [address] [place] [address] * (ABNORMAL) CBC WITH AUTO DIFFERENTIAL (06/09/2024 3:38 PM CDT) WHITE BLOOD COUNT 12.0(H) 4.5 - 11.0 thou/cu mm 06/09/2024 4:14 PM CDT [facility] RED BLOOD COUNT 4.08 4.00 - 5.20 mil/cu mm 06/09/2024 4:14 PM CDT [facility] HEMOGLOBIN 12.4 12.0 - 16.0 g/dL 06/09/2024 4:14 PM CDT [facility] HEMATOCRIT 36.2 33.0 - 51.0 % 06/09/2024 4:14 PM CDT [facility] MCV 89 80 - 100 fL 06/09/2024 4:14 PM CDT [facility] MCH 30.4 26.0 - 34.0 pg 06/09/2024 4:14 PM CDT [facility] MCHC 34.3 32.0 - 36.0 g/dL 06/09/2024 4:14 PM CDT [facility] RDW 13.6 11.5 - 15.5 % 06/09/2024 4:14 PM CDT [facility] PLATELET COUNT 314 140 - 440 thou/cu mm 06/09/2024 4:14 PM CDT [facility] MPV 10.1 6.5 - 11.0 fL 06/09/2024 4:14 PM CDT [facility] Blood BLOOD SPECIMEN / Unknown Venipuncture / Unknown 06/09/2024 3:38 PM CDT 06/09/2024 3:42 PM CDT Jose D Mccabe MD HEMATOLOGY [facility] [address] [place] [address] * (ABNORMAL) RED CELL MORPHOLOGY (06/09/2024 3:38 PM CDT) ELLIPTOCYTES Few 06/09/2024 4:14 PM CDT [facility] RBC COMMENT Present(A ) RBC morphology appears normal, RBC morphology within normal limits for newborns. 06/09/2024 4:14 PM CDT [facility] Blood BLOOD SPECIMEN / Unknown Venipuncture / Unknown 06/09/2024 3:38 PM CDT 06/09/2024 3:42 PM CDT Jose D Mccabe MD HEMATOLOGY Performing Organization Address City/[facility]/ZIP Co de Phone Number [facility] [address] [place] [address] * PLATELET ESTIMATE (06/09/2024 3:38 PM CDT) Pathologist [facility] PLATELET ESTIMATE Adequate Adequate, No estimate 06/09/2024 4:14 PM CDT [facility] Blood BLOOD SPECIMEN / Unknown Venipuncture / Unknown 06/09/2024 3:38 PM CDT 06/09/2024 3:42 PM CDT Jose D Mccabe MD HEMATOLOGY Performing Organization Address [facility] Co de Phone Number [facility] [address] [place] [address] * (ABNORMAL) MANUAL DIFFERENTIAL (06/09/2024 3:38 PM CDT) [facility] % NEUTROPHILS 81.0 % 06/09/2024 4:14 PM [facility] % LYMPHOCYTES 16.0 % 06/09/2024 4:14 PM [facility] % MONOCYTES 2.0 % 06/09/2024 4:14 PM [facility] % EOSINOPHILS 1.0 % 06/09/2024 4:14 PM [facility] % BASOPHILS 0.0 % 06/09/2024 4:14 PM [facility] NEUTROPHILS ABSOLUTE 9.7(H) 1.7 - 7.0 thou/cu mm 06/09/2024 4:14 PM [facility] LYMPHOCYTES ABSOLUTE 1.9 0.9 - 2.9 thou/cu mm 06/09/2024 4:14 PM [facility] MONOCYTES ABSOLUTE 0.2 <0.9 thou/cu mm 06/09/2024 4:14 PM [facility] EOSINOPHILS ABSOLUTE 0.1 <0.5 thou/cu mm 06/09/2024 4:14 PM [facility] BASOPHILS ABSOLUTE 0.0 <0.3 thou/cu mm 06/09/2024 4:14 PM CDT [facility] Blood BLOOD SPECIMEN / Unknown Venipuncture / Unknown 06/09/2024 3:38 PM CDT 06/09/2024 3:42 PM CDT Jose D Mccabe MD HEMATOLOGY Performing Organization Address [facility]/ZIP Co de Phone Number [facility] [address] [place] [address] * LIPASE (06/09/2024 3:38 PM CDT) Only the most recent of2 resultswithin the time period is included. Pathologist [facility] LIPASE 20.6 13.0 - 60.0 IU/L 06/09/2024 4:06 PM CDT [facility] Blood BLOOD SPECIMEN / Unknown Venipuncture / Unknown 06/09/2024 3:38 PM CDT 06/09/2024 3:42 PM CDT Jose D Mccabe MD CHEMISTRY Performing Organization Address [facility] de Phone Number [facility] [address] [place] [address] * (ABNORMAL) HEPATIC FUNCTION PANEL (06/09/2024 3:38 PM CDT) Only the most recent of2 resultswithin the time period is included. ALBUMIN 3.8(L) 4.0 - 4.9 g/dL 06/09/2024 4:06 PM CDT [facility] PROTEIN,TOTAL 6.9 6.0 - 8.0 g/dL 06/09/2024 4:06 PM CDT [facility] BILIRUBIN,TOTAL 0.2 0.0 - 1.2 mg/dL 06/09/2024 4:06 PM CDT [facility] BILIRUBIN,DIRECT 0.1 0.0 - 0.2 mg/dL 06/09/2024 4:06 PM CDT [facility] BILIRUBIN,INDIRE CT 06/09/2024 4:06 PM [facility] Comment:Unable to calculate, Direct Bili <0.2 ALK PHOSPHATASE 75 35 - 104 IU/L 06/09/2024 4:06 PM [facility] ALT (SGPT) 9(L) 10 - 35 IU/L 06/09/2024 4:06 PM [facility] AST (SGOT) 13 10 - 35 IU/L 06/09/2024 4:06 PM [facility] Blood BLOOD SPECIMEN / Unknown Venipuncture / Unknown 06/09/2024 3:38 PM CDT 06/09/2024 3:42 PM CDT Jose D Mccabe MD CHEMISTRY [facility] [address] [place] [address] * (ABNORMAL) BASIC METABOLIC PANEL (06/09/2024 3:38 PM CDT) Only the most recent of2 resultswithin the time period is included. SODIUM 137 136 - 145 mmol/L 06/09/2024 4:06 PM [facility] POTASSIUM 3.8 3.5 - 5.1 mmol/L 06/09/2024 4:06 PM [facility] CHLORIDE 103 98 - 107 mmol/L 06/09/2024 4:06 PM [facility] CO2,TOTAL 24 22 - 29 mmol/L 06/09/2024 4:06 PM [facility] ANION GAP 10 5 - 18 06/09/2024 4:06 PM [facility] GLUCOSE 102(H) 70 - 99 mg/dL 06/09/2024 4:06 PM [facility] CALCIUM 9.2 8.6 - 10.0 mg/dL 06/09/2024 4:06 PM [facility] BUN 6 6 - 20 mg/dL 06/09/2024 4:06 PM [facility] CREATININE 0.54 0.50 - 0.90 mg/dL 06/09/2024 4:06 PM CDT [facility] BUN/CREAT RATIO 11 10 - 20 4 4:06 PM CDT [facility] eGFR >90 >90 mL/min/1.7 3m2 06/09/2024 4:06 PM CDT [facility] Comment:As of 2021, eG FR is calculated by the CKD-EPI creatinine equation without race adjustment. eGFR can be influenced by muscle mass, exercise, and diet. The reported eGFR is an estimation only and is only applicable if the renal function is stable. Blood BLOOD SPECIMEN / Unknown Venipuncture / Unknown 06/09/2024 3:38 PM CDT 06/09/2024 3:42 PM CDT Jose D Mccabe MD CHEMISTRY Performing Organization Address City/State/[facility] Co de Phone Number [facility] [address] [place] [address] * US ABDOMEN LIMITED GALLBLADDER (06/06/2024 12:22 PM CDT) Anatomical Region Laterality Modality Abdomen Ultrasound 06/06/2024 12:2 7 PM CDT Narrative 06/06/2024 12:27 PM CDT For Patients: As a result of the Century Cures Act, medical imaging exams and procedure reports are released immediately into your electronic medical record. You may view this report before your referring provider. If you have questions, please contact your health [...] OUT (05/16/2024 12:00 AM CDT) Other (Other) Hiarl Guillaume MD SEND OUTS * TOP SCREW THIN PREP PAP SCREEN IMAGED (03/20/2024 4:30 PM CDT) Case Report Gynecologic Cytology Report Case: [id number] Authorizing Provider: Hiral Guillaume Collected: 03/20/2024 1630 MD Kathy Ordering Location: [facility] Received: 03/20/2024 1653 Clinic First Screen: Johann Ring Specimen: TOP SCREW ThinPrep Vial Screening, Cervical 03/28/2024 1:46 PM CDT [facility] INTERPRETATION/ RESULT NEGATIVE FOR INTRAEPITHELIAL LESION OR MALIGNANCY (NIL) (none) 03/28/2024 1:[address] [facility] IMEN ADEQUACY Satisfactory for evaluation Endocervical component present 03/28/2024 1:46 PM CDT [facility] HPV REQUEST HPV and PAP 03/28/2024 1:46 PM CDT [facility] Date of LMP 01/21/2024 03/28/2024 1:46 PM CDT [facility] Last Pap Date 09/11/20 03/28/2024 1:46 PM CDT [facility] Last Pap Result NIL 1:46 PM CDT [facility] Abnormal Pap or Achille Bx in last 5 years No 03/28/2024 1:46 PM CDT [facility] Menstrual Status 03/28/2024 1:46 PM [facility]T [facility] Achille Bx Done Today No 03/28/2024 1:46 PM CDT [facility] Additional Information None given 03/28/2024 1:46 PM CDT [facility] Comment: Cytology is screened at [facility], Central Laboratory - [address], [place] [address] and [facility] - [address], [place] [address] and [facility] - [address] [place] [address] Interpreted at [facility] - [address], [place] [address] Automated Review Successful 03/28/2024 1:46 PM CDT [facility] Comment:Specimen processed s uccessfully by automated busser device, ThinPrep Imaging System, [employer] ANCILLARY TESTING TOP SCREW HPV Ordered, Please see separate report 03/28/2024 1:46 PM CDT [facility] Note The pap test is a [...] and malignant lesions. 03/28/2024 1:46 PM CDT [facility] Other (Cervical) Non-Blood / Unknown 03/20/2024 4:30 PM CDT 03/20/2024 4:53 PM CDT Hiral Guillaume MD PATHOLOGY/ CYTOLOGY [facility] [address] [place] [id number], * ANTI HCV (03/07/2024 2:12 PM CDT) HEPATITIS C ANTIBODY Non-Reacti ve Non-React josé luis 03/08/2024 6:38 AM CDT [facility] Comment:Please note, per www .CDC.gov: [...] PM CDT 03/07/2024 2:15 PM CDT Hiral Guillaume MD SEND OUTS Performing Organization Address City/[facility]/ZIP Co de Phone Number [facility] [address] [place] [address], * ANTI HIV 1/2 (03/07/2024 2:12 PM CDT) HIV-1/HIV-2 SCREEN Non-Reacti ve Non-Reacti ve 03/08/2024 6:46 AM CDT [facility] Comment:HIV-1 p24 and HIV-1/ HIV-2 Ab Not Detected. Blood BLOOD SPECIMEN / Unknown Venipuncture / Unknown 03/07/2024 2:12 PM CDT 03/07/2024 2:15 PM CDT Hiral Guillaume MD SEND OUTS [facility] [address] [place] [address], from Last 3 Months or Most Recently [...] Code Status Discussion: Reviewed Preferences Care Teams Riveter Helper Relationship Specialty Start Date End Date Amena Jamison DO PCP - General 07/15/09
--- OUTSIDE RECORDS SUMMARY | 2024-07-14 16:13 | XMS_ITS | Data Portability ---
Author Organization DONA - [facility] quinteros OFFICE Address [address] [place] [address] DONA GORDON [id number] Assessment No assessment recorded. Plan of Treatment [...] By Organization Details Last Modified Time 12/03/2021 [id number] mental health counseling* Not available 12/04/2021 11:12:15 Reason for Referral None Reported. Results Created Date Observation Date Name Description Value Unit Range Abnormal Flag Note LastModifiedBy Organization Detail LastModifiedTime 07/22/20 20 07/22/2020 hemog lobin A1c, QN, blood A1C 5.2 Not Available [place] [address] [place], [address], 07/23/2020 09:04:53 07/22/20 20 07/22/2020 TSH, serum , refle x free T4 HDL 41 Not Available [address] [place], [address], 07/22/2020 16:12:11 07/22/20 20 07/22/2020 TSH, serum , refle x free T4 LDL 81 Not Available [address] [place], [address], 07/22/2020 16:12:11 07/22/20 20 07/22/2020 TSH, serum , refle x free T4 total cholesterol 152 Not Available Dist rict [address] [place], [address], 07/22/2020 16:12:11 07/22/20 20 07/22/2020 TSH, serum , refle x free T4 triglyceride s [address] [place], [address], 07/22/2020 16:12:11 07/22/20 20 07/22/2020 TSH, serum , refle x free T4 TSH 2.45 Not Available [address] [place], [address], 07/22/2020 16:12:11 07/22/20 20 07/22/2020 lipid s, total , serum HDL 41 Not Available [address] [place], [address], 07/22/2020 15:54:38 07/22/20 20 07/22/2020 lipid s, total , serum LDL 81 Not Available [address] [place], [address], 07/22/2020 15:54:38 07/22/20 20 07/22/2020 lipid s, total , serum total cholesterol 152 Not Available Dist rict [address] [facility] [place], [address], 07/22/2020 15:54:38 07/22/20 20 07/22/2020 lipid s, total , serum triglyceride s [address] [facility] [place], [address], 07/22/2020 15:54:38 07/22/20 20 07/22/2020 lipid s, total , serum TSH 2.45 Not Available [facility] [address] [facility] [place], [address], 07/22/2020 15:54:38 09/11/19 21 09/11/2020 pap, LB + refle x to HR HPV if ASC-U gynecologic cytology report (Pap) nil nil normal Not Available [facility] [address], [place], [address], 09/20/2020 15:06:53 09/11/19 21 09/11/2020 pap, LB + refle x to HR HPV if ASC-U HPV high risck negati ve negati ve Not Available Not Available 09/27/2020 18:10:27 Result Notes None recorded. Problems Name Problem SNOMED Code Status Onset Date Resolution Date Notes Provider Name and Address Organization Details Recorded Time Anxiety 96523069 Active 2020 Melinda Zamarripa NP [address] [place], [address], [facility] 10:54:05 Depressive disorder 76076074 Active 2020 Melinda Zamarripa NP [address] [place], [address], [facility] 10:54:10 Nosophobia 047215090 Active 2020 Melinda Zamarripa NP [address] [place], [address], [facility] 10:55:28 Obsessive-co mpulsive disorder 387032296 Active 2020 Melinda Zamarripa NP [address] [place], [address], [facility] 1 10:55:36 Problem Notes None recorded. Procedures Surgical History Date Name Laterality Status Provider Name and Address Organization Details Recorded Time 7 Date of Last Pap Smear completed Melinda Zamarripa NP [address] [place], [address], [facility] 07/17/2020 16:16:07 0 [place] [address] [place] [address], [address], [facility] 07/17/2020 16:15:50 Imaging Results None recorded. Procedure Notes None recorded. Medical Equipment None Reported. Allergies Allergen ID Allergen Name Allergen Category Reaction Reaction Severity Criticality Documentation Date Start Date Code Code System Note Provider Name and Address Organization Details Recorded Time 283 Reglan medicatio n Not available Not available Not available 07/17/2020 9230 RxNorm Melinda Zamraripa NP [address] [place], [address], [facility] 0 16:12:38 Medications Name Sig [...] Updated DateTime 07/17/2020 154.94 cm 39.7 kg/m2 56738.4 g Melinda Zamarripa NP [address] [place], [address] 07/17/2020 16:11:36 Date Recorded Body height Provider Name an d Address Organization Details Last Updated DateTime 07/31/2020 154.94 cm Melinda Zamarripa NP [address] [place], [address] 07/31/2020 11:38:15 Date Recorded Body height Body mass index (BMI) Body weight Respiratory rate Systolic blood pressure Diastolic blood pressure Provider Name and Address Organization Details Last Updated DateTime 1 158.75 cm 36.5 kg/m2 02636.2 5 g 83 /min 130 mm[Hg] 84 mm[Hg] Melinda Zamarripa NP [address] [place], [address], [facility] 1 10:54:34 Date Recorded Body weight Body mass index (BMI) Body height Heart rate Systolic blood pressure Diastolic blood pressure Provider Name and Address Organization Details Last Updated DateTime 2 97126.7 7 g 33.7 kg/m2 158.75 cm 77 /min 111 mm[Hg] 75 mm[Hg] Melinda Zamarripa NP [address] [place], [address] [place] [address] 39 Health 2 10:58:07 Social History Question Answer Notes LastModified by Organizat ion Details LastModified Time Tobacco Smoking Status Never Smoker Melinda Zamarripa NP [address] [place], [address], [facility] 07/17/2020 16:13:18 What Is Your Level Of [...] Diagnosis/Indication Diagnosis SNOMED-CT Code Diagnosis ICD10 Code 45921 Melinda Zamarripa NP [facility] [address] [place] [address] 07/17/2020 15:42:42 07/17/2020 17:44:59 Irregular periods 86153518 N92.6 [address]1878 Melinda Zamarripa NP [facility] [address] [facility] [place] [address] 07/31/2020 11:20:07 07/31/2020 12:07:28 Irregular periods 89337787 N92.6 Screening for malignant neoplasm of cervix 468620646 Z12.4 40542 Melinda Zamarripa NP [facility] [address] [facility] DONA POTTER [address] 09/11/2020 09:52:46 09/11/2020 11:12:11 Irregular periods 84901224 N92.6 Screening for malignant neoplasm of cervix 658332813 Z12.4 17005 Melinda Zamarripa NP [facility] [address] [place] [address] DONA RAMOS [address] 12/03/2021 10:42:19 12/03/2021 12:53:07 Anxiety 52000778 F41.9 Health Concerns Section Related Observation LastModified [...] Address Organization Details Recorded Time 07/17/2020 text/html 30 y.o F evaluat ed via phone for the following concern: No [...] last 1-2 years Melinda Zamarripa NP [address] [facility] [place], [address], [facility] 07/17/2020 16:36:25 07/31/2020 text/html 30 y.o F evaluat ed via doxy in follow up after evaluation [...] of exercises Feeling well physically Melinda Zamarripa, ONLINE COMMUNICATIONS MANAGER [address] [place], [address], [facility] 07/31/2020 11:59:42 09/11/2020 text/html 30 y.o. established patientIn-person visitPMH: irregular periods, obesity, anxiety, depression, OCD, nosophobia [...] history of abnormal pap smear. Melinda Zamarripa, ONLINE COMMUNICATIONS MANAGER [address] [place], [address], [facility] 09/11/2020 12:12:33 12/03/2021 text/html 31 y.o. ryne taveras patient with history of anxiety, nosophobia, OCD, [...] subsequently had many normal visits with the communications associate. Patient reports that she worries constantly about [...] alcohol abuse, or drug use. Melinda Zamarripa, ONLINE COMMUNICATIONS MANAGER [address] [place], [address], [facility] 12/03/2021 14:59:27 OBGyn Episode No OBEpisode recorded.
--- NOTE | 2024-07-14 16:47 | CRLHL7_ITS ---
For Patients: As a result of the Century Cures Act, medical imaging exams and procedure reports are released immediately into your electronic medical record. You may view this report before your referring provider. If you have questions, please contact your health care provider. INDICATION: New onset spotting. BIRDIE based on LMP: 11/01/2024. Gestational age: Twenty-four weeks and 2 days. FINDINGS: Gestation: Torres. Placental location: Anterior. No previa. position: Vertex. Cervix: 5.1 cm closed. Amniotic fluid: 7.6 cm single deepest pocket. heart rate: 150 BPM. IMPRESSION: No cause for spotting. Dictated by Homero Tejada MD @ 07/14/2024 6:26:09 PM (Electronically Signed)
--- NOTE | 2024-07-14 17:43 | PC.OBNST ---
NST Note NST Note Start: 07/14/24 16:12 Freq: ONCE Status: Active Protocol: Document 07/14/24 16:12 [facility] (Rec: 07/14/24 17:42 [facility] [id number]) NST Note 3 Para (# of births) 2 EDC 11/01/24 Gestational Age In Weeks & Days 24 Weeks & 2 Days Patient Presented with Complaint(s) of Vaginal bleeding Other Complaints seeing blood on toilet paper and pin point clots. No continuous or increasing bleeding Reactive Yes Appropriate for Gestational Age Yes RN Major RN Date 07/14/24 Reactive Yes Appropriate for Gestational Age Yes RN Orquidea RN Date 07/14/24 OB NST charge Yes Complete NST Note via Write Note Yes The provider's electronic signature indicates the NST is reactive/appropriate for gestational age. *Note to provider: If an addendum is required, open the patient's chart and click on the note under the Nurse/Allied Health tab.
--- NOTE | 2024-08-20 18:36 | PC.OBNST ---
NST Note NST Note Start: 07/14/24 16:12 Freq: ONCE Status: Discharge Protocol: Document 07/14/24 16:12 [facility] (Rec: 07/14/24 17:42 [facility] [id number]) NST Note 3 Para (# of births) 2 EDC 11/01/24 Gestational Age In Weeks & Days 24 Weeks & 2 Days Patient Presented with Complaint(s) of Vaginal bleeding Other Complaints seeing blood on toilet paper and pin point clots. No continuous or increasing bleeding Reactive Yes Appropriate for Gestational Age Yes RN Case RN Date 07/14/24 Reactive Yes Appropriate for Gestational Age Yes RN Orquidea RN Date 07/14/24 OB NST charge Yes Complete NST Note via Write Note Yes The provider's electronic signature indicates the NST is reactive/appropriate for gestational age. *Note to provider: If an addendum is required, open the patient's chart and click on the note under the Nurse/Allied Health tab.
--- NOTE | 2024-08-30 16:05 | W.PM.NSTNOTE ---
NST Note NST Note NST Note: NST Note NST Note Start: 07/14/24 16:12 Freq: ONCE Status: Discharge Protocol: Document 07/14/24 16:12 [facility] (Rec: 07/14/24 17:42 [facility] [id number]) NST Note 3 Para (# of births) 2 EDC 11/01/24 Gestational Age In Weeks & Days 24 Weeks & 2 Days Patient Presented with Complaint(s) of Vaginal bleeding Other Complaints seeing blood on toilet paper and pin point clots. No continuous or increasing bleeding Reactive Yes Appropriate for Gestational Age Yes RN Major RN Date 07/14/24 Reactive Yes Appropriate for Gestational Age Yes RN Orquidea RN Date 07/14/24 OB NST charge Yes Complete NST Note via Write Note Yes Addendum: FHT: baseline 150 bpm, reactive tracing, appropriate for gestational age.
== END 2024-07-14 17:40 | disposition home or self-care (01) ==
LOC: OB OUT 16:11 → OB 16:13
PROVIDERS: PCP Family Medicine; Visit Provider Student in an Organized Health Care Education/Training Program
DX: O46.92 Antepartum hemorrhage, unspecified, second trimester (principal); Z3A.24 24 weeks gestation of pregnancy
CPT/HCPCS: 59025; 76815; G0463

== ENCOUNTER 2024-09-12 11:29 | Outpatient (CLI) | payer BC, SELFPAY | END 2024-09-12 11:30 | disposition home or self-care (01) | PROVIDERS: PCP Family Medicine; Visit Provider Obstetrics & Gynecology | DX: O99.713 Diseases of the skin and subcutaneous tissue complicating pregnancy, third trimester (principal); L29.9 Pruritus, unspecified; R30.9 Painful micturition, unspecified; Z3A.32 32 weeks gestation of pregnancy | CPT/HCPCS: 80053; 82239; 87086 ==

== ENCOUNTER 2024-09-19 13:44 | Outpatient (CLI) | payer BC, SELFPAY | END 2024-09-19 13:45 | disposition home or self-care (01) | LOC: US 13:45 | PROVIDERS: PCP Family Medicine; Visit Provider Family Medicine | DX: O36.8130 Decreased fetal movements, third trimester, not applicable or unspecified (principal); Z3A.33 33 weeks gestation of pregnancy | CPT/HCPCS: 76819 ==

== ENCOUNTER 2024-10-27 05:52 | Inpatient (IN) | payer BC, SELFPAY ==
[2024-10-27] VITALS (32 sets, daily range): BP systolic 114–139; BP diastolic 77–92; PULSE 62–86; RESP 16–18; TEMP 36.3–36.8; O2SAT 95–98; BMI 43.0
[2024-10-27] MEDS: LACTATED RINGERS 1000 ML 1,000 ML IV (06:30)
[2024-10-27 06:36] LABS: Basophils Absolute Auto 0.03 K/uL (0.00-0.30); Basophils Percent Auto 0.3 % (0.0-3.0); Eosinophils Absolute Auto 0.08 K/uL (0.00-0.50); Eosinophils Percent Auto 0.9 % (0.0-7.0); Hematocrit 37.4 % (33.0-51.0); Hemoglobin* 12.4 gm/dL (12.0-16.0); Immature Granulocytes Abs Auto 0.16 K/uL (0.00-0.30); Immature Granulocytes Pct Auto 1.8 %; Lymphocytes Absolute Auto 2.29 K/uL (0.90-2.90); Lymphocytes Percent Auto 26.2 % (20-44); Mean Corpuscular HGB Conc 33 gm/dL (32-36); Mean Corpuscular Hemoglobin 29 pg (26-34); Mean Corpuscular Volume 88 fL (80-100); Monocytes Percent Auto 7.3 % (0.0-11.0); Neutrophils Absolute Auto 5.53 K/uL (1.7-7.0); Neutrophils Percent Auto 63.5 % (42.0-72.0); Platelet Count* 182 K/uL (140-440); RDW Coefficient of Variation % 14.5 % (11.5-15.5); Red Blood Count 4.27 m/uL (4.00-5.20); White Blood Count* 8.73 K/uL (4.50-11.00)
[2024-10-27 06:44] LABS: Slide Review Reflex No
--- NOTE | 2024-10-27 07:07 | W.PM.H&PU ---
History & Physical Update History & Physical Update H&P Reviewed and patient assessed: No changes noted
[2024-10-27] MEDS: CEFAZOLIN 1 GM inj 3 GM IVP (07:23)
[2024-10-27] MEDS: LACTATED RINGERS 1000 ML 1,000 ML 100 ML IV ×2 (07:25→23:38)
--- NOTE | 2024-10-27 08:55 | PM.OBPRCCS ---
Procedure Date of procedure: 10/27/24 Pre-op diagnosis: 1. 39 2/9 gestation, desiring repeat section. 2. History of section. 3. History of . Post-op diagnosis: same Procedure Done: only Will [facility] bill your pro fee for this procedure?: Yes Blood Loss Measurement Type: QBL (741 mL) Bakri Used: No IV fluids (mL): 1,700 Urine Output (mL): 125 Surgeon: Anaya Tapia MD Anesthesia Type: Spinal Findings: Moderate amount of adhesions in the abdomen and pelvis, including significant adhesions between the bladder and lower uterine segment. Live-born male , cephalic presentation, nuchal cord x1, Apgars 9 and 9 at one and 5 minutes respectively, weight 7 lb 12 oz. Procedure Name: Repeat low transverse section with lysis of adhesions. Procedure Description: ON: Regina. ANESTHESIA: Spinal. COMPLAfter obtaining informed consent, the patient was taken to the operating room where spinal anesthesia was obtained and found to be adequate. She was prepared and draped in the normal sterile fashion in the dorsal supine position with a leftward tilt. A Pfannenstiel skin incision was made with a scalpel along the line of the patient's previous Pfannenstiel scar. This incision was carried down to the underlying layer of fascia with the Bovie. The fascia was incised in the midline and the incision extended laterally. The superior and inferior aspects of the fascial incision were grasped with Joe clamps, elevated and the underlying rectus muscles dissected off sharply and with electrocautery. This dissection took an increased amount of time given the dense adhesions. The rectus muscles were then in the midline. The adhesions between the bladder and lower uterine segment were taken down sharply with Metzenbaum scissors. The Ivan O retractor was then placed into the incision. The lower uterine segment was then incised in a transverse fashion with the scalpel. Upon entry into the uterus, clear amniotic fluid was noted. The uterine incision was extended laterally with blunt finger fractionation. The infant's head was delivered atraumatically, followed by the remainder of the 's body. The nose and mouth were suctioned with the bulb suction. The cord was doubly clamped and cut, and the was handed off the field for evaluation. The placenta was delivered spontaneously with umbilical cord traction and fundal massage. The uterus was cleared of all clots and debris. The uterine incision was reapproximated in a running locking fashion with a 0 chromic suture. A 2nd layer of the same suture was used to imbricate in horizontal fashion. A 3-0 chromic suture was used to place a figure of X stitch superior to the hysterotomy incision, where the most dense adhesions had been taken down involving the bladder and uterine serosa. Excellent hemostasis was visualized. The gutters were irrigated and suctioned. All instruments and retractors were removed. Chrissy was placed over the lower uterine segment where the tissues were still somewhat raw from the adhesed you lysis to separate the bladder from the lower uterine segment. The subfascial tissues were carefully inspected and hemostasis assured. The fascia was reapproximated in a running fashion with a looped 0 PDS suture. The subcutaneous tissues were copiously irrigated. Hemostasis was assured. The subcutaneous fat layer was reapproximated with interrupted sutures of 3-0 plain gut. The skin was closed in a subcuticular fashion with 4-0 Vicryl. A silver Mepilex dressing was applied. The patient tolerated the procedure well. Sponge, lap, needle, and instrument counts were reported as correct x2. The patient was taken to the recovery room, awake, and in stable condition. She did receive three grams of IV Ancef preoperatively. Complications: None. Pathology: none sent Surgery Debrief Performed: Yes Condition: stable Disposition: floor Christiana total score - 1 minute: 9 total score - 5 minute: 9
--- NOTE | 2024-10-27 09:09 | W.ANESCHARGE ---
Anesthesia Charges Start Date/Time Anesthesia Start Date: 10/27/24 Anesthesia Start Time: 07:11 Stop Date/Time Anesthesia Stop Date: 10/27/24 Anesthesia Stop Time: 09:22 Coding CPT Codes CPT Codes: ANESTH CS DELIVERY - 38990 ([id number]) P3 - PATIENT W/SEVERE SYS DISEASE, QK - SUPERVISOR PARTICLEBOARD 2-4 CNCRNT ANES PROC, QX - BAR PILOT SVC W/ MD MED DIRECTION
--- NOTE | 2024-10-27 09:14 | W.ANESCHARGE ---
Anesthesia Charges Start Date/Time Anesthesia Start Date: 10/27/24 Anesthesia Start Time: 07:11 Stop Date/Time Anesthesia Stop Date: 10/27/24 Anesthesia Stop Time: 09:22 Coding CPT Codes CPT Codes: ANESTH CS DELIVERY - 78958 ([id number]) P3 - PATIENT W/SEVERE SYS DISEASE, QK - TREATMENT PLANT MECHANIC 2-4 CNCRNT ANES PROC, QX - GREETING CARD MAKER SVC W/ MD MED DIRECTION
--- NOTE | 2024-10-27 09:17 | W.PM.NB ---
Nerve Block Nerve Block Time Seen by Provider: 09:15 Date Seen: 10/27/24 Type of block requested by surgeon for post-operative analgesia: TAP Side: bilateral Time out performed: Yes Verification of patient name: Yes Verification of date of : Yes Site marking: site marked Name of person performing procedure: nickolas masony Continuous monitoring Was continuous monitoring of O2 sat, B/P, hand funnel coater, recorded every 15 minutes?: Yes Procedure Checklist: sterile prep, needles and gloves Ultrasound guided. Images saved: Yes Medications given in 5ml increments after negative aspiration: Marcaine %: 0.25 mL: 30 and Exparel mL: 10 Patient tolerated procedure well: Yes Block Charges Block Charge (with Pro Fee): TAP Bilateral Use of Ultrasound Machine for Block: Yes- US Guidance/pain block
[2024-10-27] MEDS: ONDANSETRON 2 MG/ML inj 4 MG IV (11:34)
[2024-10-27] MEDS: SCOPOLAMINE 1 MG/3 DAY PATCH 1 PATCH TRANSDERMA (11:34)
[2024-10-27] MEDS: LACTATED RINGERS 1000 ML 1,000 ML 125 ML IV ×2 (12:07→23:38)
[2024-10-27] MEDS: KETOROLAC 30 MG/ML inj IVP ×2 (14:31→20:30)
--- NOTE | 2024-10-27 17:14 | PM.OBPNVD1 ---
OB - PN:Subj Subjective Time Seen by Provider: 17:00 Date Seen: 10/27/24 Narrative: The patient is lying comfortable in the bed. She had had nausea and large emesis earlier today, and received anti-emetic medications including ondansetron, scopolamine and compazine. She denies nausea currently, but does complain of some mild lightheadedness. Denies postoperative abdominal pain. Has history of gallstones and gallbladder wall thickening, and is scheduled for cholecystectomy in November. Admits to RUQ pain and nausea last evening as well. OB - PN: Obj Exam Physical Exam: Vital signs: Temp Pulse Resp BP Pulse Ox O2 Del Method 97.6 F 69 16 126/83 95 Room Air 10/27/24 16:16 10/27/24 16:16 10/27/24 16:30 10/27/24 16:16 10/27/24 16:16 10/27/24 16:16 Constitutional: Constitutional: no acute distress Routine Respiratory Exam: Respiratory: Absent respiratory distress Routine Abdominal Exam: Abdominal: Present soft; Absent tenderness Fundus: Present firm Routine Extremities Exam: Extremities: Present normal inspection and pedal edema; Absent calf tenderness Routine Neurological Exam: Neurological: Present alert and oriented X3 Routine Psychiatric Exam: Psychiatric: Present normal affect OB - PN: Obj Data Labs Labs: Laboratory Results - last 24 hr 10/27/24 10/27/24 06:20 06:20 WBC 8.73 RBC 4.27 Hgb Cancelled 12.4 Hct 37.4 MCV 88 MCH 29 MCHC 33 RDW Coeff of Elena 14.5 Plt Count 182 Neut % (Auto) 63.5 Lymph % (Auto) 26.2 Harrison % (Auto) 7.3 Eos % (Auto) 0.9 Baso % (Auto) 0.3 Neut # (Auto) 5.53 Lymph # (Auto) 2.29 Harrison # (Auto) 0.60 Eos # (Auto) 0.08 Baso # (Auto) 0.03 Abs Immat Gran (auto) 0.16 Imm/Tot Granulo (auto) 1.8 Blood Type O Positive Antibody Screen NEGATIVE OB - PN: A/P Delivery Assessment and Plan (1) Status post repeat low transverse section: Status: Acute (2) Cholecystitis: Status: Acute Assessment and Plan: Follow up with general surgery as scheduled following discharge. Plan day: 0 Plan: routine care
[2024-10-28] VITALS (7 sets, daily range): BP systolic 107–127; BP diastolic 71–83; PULSE 66–81; RESP 15–16; TEMP 36.7–37.1; O2SAT 92–95
[2024-10-28] MEDS: KETOROLAC 30 MG/ML inj IVP ×3 (02:31→14:50)
[2024-10-28 06:47] LABS: Hemoglobin* 9.7 gm/dL (12.0-16.0)
--- NOTE | 2024-10-28 08:01 | PM.OBPNVD1 ---
OB - PN:Subj Subjective Date Seen: 10/28/24 Narrative: Patient is a 34-year-old seen on postoperative day 1 from a scheduled repeat . was complicated by prior , cholecystitis (active disease during with hospitalization in September, planning lap cholecystectomy in November), anxiety, PTSD, OCD, velamentous cord insertion, history of palpitations. She had an uncomplicated repeat delivery with Dr. Tapia yesterday. Postoperative course has been complicated by emesis and slow progression through milestones. She was last evaluated yesterday evening by Dr. Tapia, where her emesis was attributed to her known cholelithiasis and acute postop/post anesthetic status. Overnight, her vital signs have remained entirely within normal limits. Adequate urine output (56cc/hr in last 8 hours). She was up to ambulate for the 1st time overnight. AM Hgb 9.7 from 12.4 pre-op. This morning, she notes pain is well controlled. She has been up to ambulate, denies dizziness or lightheadedness when doing so. No chest pain or shortness of breath. She denies any ongoing nausea/vomiting, where she is now tolerating p.o. liquids without difficulty. She has not trialed solids, encouraged her to do so in small volumes with things that are unlikely to incite nausea/vomiting. She is voiding spontaneously. Endorses flatus. Vaginal bleeding has been variable, where she did have 1 episode of more bleeding but now notes it significantly decreased. Baby Boy is doing well, bottle feeding and intends to pump when her milk comes in. Encouraged her to pump or direct breastfeed every 2-3 hours to induce her supply as desired. OB - PN: Obj Exam Physical Exam: Vital signs: Temp Pulse Resp BP Pulse Ox O2 Del Method 98.8 F 73 16 127/77 92 Room Air 10/28/24 03:58 10/28/24 03:58 10/28/24 05:00 10/28/24 03:58 10/28/24 03:58 10/28/24 03:58 Narrative: General: Alert and oriented, no acute distress Psych: Appropriate mood and affect Abdomen: Soft, nondistended. Moderate tenderness to palpation in the lower quadrants consistent with postoperative state, no rebound or guarding. Fundus palpates at umbilicus, firm. Incision is covered by silver dressing, no peripheral erythema or ecchymosis. OB - PN: Obj Data Labs Labs: Laboratory Results - last 24 hr 10/28/24 06:30 Hgb 9.7 L OB - PN: A/P Delivery Assessment and Plan (1) Status post repeat low transverse section: Status: Acute (2) Cholecystitis: Status: Acute Plan Patient is a 34-year-old seen on postoperative day 1 from a scheduled repeat . was complicated by prior , cholecystitis (active disease during with hospitalization in September, planning lap cholecystectomy in November), anxiety, PTSD, OCD, velamentous cord insertion, history of palpitations. She had an uncomplicated repeat delivery with Dr. Tapia yesterday. Postoperative course has been complicated by emesis and slow progression through milestones. Vital signs within normal limits. Adequate urine output overnight. AM hemoglobin of 9.7 (from 12.4). She has continued to progress through milestones, now with Mclaughlin out and ambulating successfully. Denies any dizziness/lightheadedness, chest pain or dyspnea. Abdominal exam is notable for moderate tenderness, but no distention, rebound or guarding. Continue to diligently monitor vital signs, vaginal bleeding and progression to postoperative milestones. Would consider a repeat hemoglobin to ensure stabilization if any of these were to change. She notes that her immediate postop nausea/vomiting is much improved. She has been easily able to tolerate p.o. liquids, wants to trial solids today. I agree this is the reasonable next step, where I would recommend she start with small volumes and bland foods to avoid inducing GI upset. Recommend support and nipple stimulation with pumping/direct feeding every 2-3 hours as she does intend to breastfeed when her milk comes in. Explained this typically would occur on days 3-5, though it is still important to stimulate her breast now 2 create demand for future milk. Disposition is inpatient. Continue to work on p.o. intake and progression through postoperative milestones today. Anticipate dismissal to home on postoperative day 2 or 3. Plan day: 1 Plan: routine care
[2024-10-28] MEDS: DOCUSATE SODIUM 100 MG CAPSULE PO (08:53)
[2024-10-28] MEDS: ACETAMINOPHEN 500 MG TABLET 1000 MG PO (17:51)
[2024-10-28] MEDS: IBUPROFEN 600 MG TABLET PO (22:10)
[2024-10-28 23:04] LABS: Rapid Plasma Reagin (RPR) Non Reactive (Non Reactive)
[2024-10-29] MEDS: ACETAMINOPHEN 500 MG TABLET 1000 MG PO ×2 (00:02→06:57)
[2024-10-29 00:03] VITALS: BP 126/78; PULSE 88; RESP 20; TEMP 36.8; O2SAT 97
[2024-10-29] MEDS: IBUPROFEN 600 MG TABLET PO (03:30)
[2024-10-29 08:40] VITALS: BP 122/86; PULSE 78; RESP 16; TEMP 36.4; O2SAT 95
[2024-10-29] MEDS: SIMETHICONE 80 MG TAB.CHEW PO (08:41)
[2024-10-29] MEDS: DOCUSATE SODIUM 100 MG CAPSULE PO (08:41)
--- NOTE | 2024-10-29 09:25 | PM.OBDSVD1 ---
DS: Providers Provider Date Seen: 10/29/24 Date of admission: 10/27/24 05:52 Primary care physician: Amena Jamison DO Admitting Clinician: Anaya Tapia MD Attending Physician on discharge: Anaya Tapia MD Exam Narrative: Exam Narrative: General: Alert and oriented, no acute distress Psych: Appropriate mood and affect Abdomen: Soft, nondistended. Mild tenderness to palpation in the lower quadrants consistent with postoperative state, no rebound or guarding. Fundus palpates at umbilicus, firm. Incision is covered by silver dressing, no peripheral erythema or ecchymosis. Extremities: Wearing compression stockings secondary to edema. No calf erythema or tenderness. Const: Vital Signs, click to edit/add: Vital Signs - 24 hr 10/28/24 08:49 10/28/24 17:35 10/29/24 00:03 Temperature 98.1 F 98.1 F 98.3 F Pulse Rate [Pulse Oximeter] 66 81 88 Respiratory Rate 15 16 20 Blood Pressure [Ri ght Arm] 107/71 120/83 126/78 Pulse Oximetry 95 94 97 Oxygen Delivery Me thod Room Air Room Air Room Air 10/29/24 08:40 Temperature 97.6 F Pulse Rate [Pulse Oximeter] 78 Respiratory Rate 16 Blood Pressure [Ri ght Arm] 122/86 Pulse Oximetry 95 Oxygen Delivery Me thod Room Air OB - DS: Summary Hospital Course Hospital Course: Stefania is a 34-year-old seen on postoperative day 2 from a scheduled repeat . was complicated by prior , cholecystitis (active disease during with hospitalization in September, planning lap cholecystectomy in November), anxiety, PTSD, OCD, velamentous cord insertion, history of palpitations. She had an uncomplicated repeat delivery with Dr. Tapia yesterday. Postoperative course has been complicated by emesis in the immediate post-op period, now much improved. She notes pain is well controlled on ibuprofen and Tylenol, has not utilized any Tylenol. She finds transition movements to be the most challenging. Appetite at baseline, no nausea/vomiting since postop day 0. She is voiding spontaneously. She is passing gas and had a bowel movement x1 this morning. Lochia is minimal. She is breast and bottle feeding without difficulty. No mood concerns, bonding well with baby boy. Peripartum Data Procedures: Procedures Operation Date: 10/27/24 07:15 Actual Procedure Side Surgeon p Repeat Section Anaya Tapia MD Infant Gender: Male Time Spent with Patient Time attestation: Total time spent providing and/or coordinating discharge services: Discharge Plan Discharge Disposition: Home, Self-Care Date of Admission: 10/27/24 05:52 Primary Care Provider: Amena Jamison Condition: Stable Anticipated Discharge Date/Time: 10/29/24 09:29 Discharge Medications: New oxycodone 5 mg Tablet 5 mg PO Q4H PRN (Reason: Pain) Qty: 10 0RF Continued M- Plus 27 mg iron- 1 mg tablet 1 tab PO DAILY morphine 15 mg tablet Patient Comments: [NO ORIGINAL SIG] acetaminophen [Tylenol] 325 mg tablet 650 mg PO Q6H PRN pantoprazole 20 mg tablet,delayed release (DR/EC) PO DAILY Discharge Orders: Discharge Order (Routine); Ordered 10/29/24 Ordered By: Cassie Palumbo Patient Education: OB /Bottle Feeding Additional Instructions: Discharge instructions were reviewed with the patient including signs and symptoms of infection and home going medications Lifting Restrictions: 20 pounds for 6 weeks No not submerge incision under water X 2 weeks? Nothing vaginally for 6 weeks: no tampons or intercourse Do not take your previously prescribed morphine with oxycodone - only take one or the other. Do not drive while taking narcotic pain medication(s) Off Work or School for 8 weeks Symptoms to report to doctor: Bleeding that saturates more than one pad per hour Passing clots larger than the size of a golf ball Pain not relieved by prescribed medication Fever above 100.4 degrees Fahrenheit A foul vaginal odor Difficulty in emotions, mood, and functions Thoughts of hurting yourself and/or Painful, reddened area in your breast Any drainage, redness, or tenderness in your IV/epidural site Severe headache that doesn't improve after taking medications Changes in vision, including temporary loss of vision, blurred vision, and/or light sensitivity Upper abdominal pain (usually under ribs on the right side) Decrease in urination or painful, frequent urinating Chest pain Shortness of breath Tenderness or pain with redness and/swelling in the calf(s) of your leg 1 week incision check (silver dressing removal) at [facility]. A c.o.d. audit clerk will call tomorrow. At [facility] (Dr. Wagner): 6-week visit for an annual exam. Please call their clinic to schedule. consultation services are available to all mothers and babies for the first year after delivery.? To make an appointment, please call [phone]. Follow Up Appointments: Amena Jamison, [Primary Care Provider] - Forms: [employer] Info Instructions
[2024-10-29] MEDS: SCOPOLAMINE 1 MG/3 DAY PATCH 1 PATCH TRANSDERMA (10:45)
== END 2024-10-29 10:56 | disposition home or self-care (01) | DRG 540 ==
PROVIDERS: Admitting Provider Obstetrics & Gynecology; PCP Family Medicine; Visit Provider Obstetrics & Gynecology
PROC: 10D00Z1 Extraction of Products of Conception, Low, Open Approach (ICD-10-PCS; CPT 59514; principal; 2024-10-27 07:15)
DX: O34.211 Maternal care for low transverse scar from previous cesarean delivery (principal); O99.892 Other specified diseases and conditions complicating childbirth; N73.6 Female pelvic peritoneal adhesions (postinfective); G89.18 Other acute postprocedural pain; O99.62 Diseases of the digestive system complicating childbirth; K80.00 Calculus of gallbladder with acute cholecystitis without obstruction; R11.2 Nausea with vomiting, unspecified; R42 Dizziness and giddiness; O99.344 Other mental disorders complicating childbirth; F41.9 Anxiety disorder, unspecified; F43.10 Post-traumatic stress disorder, unspecified; F42.9 Obsessive-compulsive disorder, unspecified; Z3A.39 39 weeks gestation of pregnancy; Z37.0 Single live birth
CPT/HCPCS: 01961; 36415; 64488; 76942; 85018; 85025; 86592; 86850; 86900; 86901; A4314; A9270; J0665; J0666; J0690; J1100; J1885; J2274; J2371; J2405; J2590; J7120

== ENCOUNTER 2024-11-03 13:18 | Outpatient (CLI) | payer BC, SELFPAY | END 2024-11-03 13:19 | disposition home or self-care (01) | PROVIDERS: PCP Family Medicine; Visit Provider Obstetrics & Gynecology | DX: L76.82 Other postprocedural complications of skin and subcutaneous tissue (principal) | CPT/HCPCS: 87070; 87086 ==